=== PATIENT | female | born 1960 | race Caucasian/White ===

== ENCOUNTER → 2017-01-01 | Outpatient (CLI) | payer OTHER ==
--- NOTE | 2017-01-01 15:26 | DX ---
PA and lateral chest x-ray 1351 hours. History: Cough with shortness of breath for 8 weeks. Findings: Comparison to September 29, 2007. There is moderate consolidation/pneumonia involving the rig ht lung with denser consolidation right suprahilar region. The left lung is clear. Heart size and pul monary vasculature are normal. Osseous structures are intact. Impression: Moderate pneumonia right lung with denser consolidation right suprahilar region.
== END ==
LOC: BMCIMAGING 13:53
PROVIDERS: ATTEND Internal Medicine
DX: J18.9 Pneumonia, unspecified organism (principal); R05 Cough; R06.02 Shortness of breath

== ENCOUNTER → 2017-01-09 | Outpatient (CLI) | payer OTHER ==
--- NOTE | 2017-01-09 13:53 | CT ---
CT Scan of the Chest Without Contrast: 11:22 AM History: Right lung pneumonia Comparison: None. Technique: Noncontrast multidetector [address] imaging was performed from the superior thoracic inlet to the diaphragm. The radiologist manipulated images at the computer workstation. Dose reduc tion techniques were utilized. Findings: Diffuse right upper lobe pneumonia with the densest consolidation in the anterior segment d evoid of air bronchograms. There is an anterior convex average density at the anterolateral margin of the densest portion suggesting the possibility of an underlying mass. There is no cavitation. Less d ense pneumonia is present elsewhere in the right upper lobe. There is a small amount of infiltrate in the lateral segment of the right middle lobe. There is no pleural effusion. The right hilum is promi nent suggesting adenopathy, mildly extrinsically compressing the posterior wall of the right middle l obe bronchus. There is a small pericardial effusion, possibly normal. The right lower lobe and left l shannan are normally aerated. There is noncalcified mediastinal adenopathy, the largest nodes being righ t paratracheal and subcarinal. There is no axillary or internal mammary adenopathy. Skeletal evaluati on is negative. Limited scans through the upper abdomen demonstrate 2 subtle low density lesions in t he right lobe of the liver, one in the caudate lobe and one in the right lateral lower lobe. The adre nal glands are negative. There is shotty para-aortic noncalcified adenopathy. Impression: Possible mass underlying the patient's right upper lobe pneumonia. There is evidence sugg esting the possibility of regional and hepatic metastatic disease, although lymph nodes might be reac tive. Chest CT with IV contrast would be helpful to better define the right upper lobe process, right hilum and liver lesions. Consider bronchoscopy for obtaining histologic sampling.
== END ==
LOC: FIMAGING 10:55
PROVIDERS: ATTEND Internal Medicine
DX: R91.8 Other nonspecific abnormal finding of lung field (principal); J18.9 Pneumonia, unspecified organism

== ENCOUNTER 2017-01-29 07:45 | Emergency (ER) | payer OTHER ==
[2017-01-29 07:58] VITALS: RESP 18
[2017-01-29] MEDS ORDERED: CYCLOBENZAPRINE 10 MG TAB PO ONE (08:14)
[2017-01-29] MEDS ORDERED: KETOROLAC 30 MG/1 ML SDV IM ONE (08:14)
--- NOTE | 2017-01-29 08:21 | EDPHY ---
H & P Time Seen by Provider: 01/29/17 08:07 HPI/ROS: HPI Left-sided lower back pain. 56-year-old female by private vehicle. This patient reports that she has had on and off lumbar area lower back pain. She denies any loss of sensation or weakness in her lower extremities. No bowel or bladder incontinence. She has not had a fever. No abdominal pain. She reports that this morning she was leaning over bending forward from a sitting position to cut her nails when she had sudden spasm and pain in the left lumbar sacral area that radiated up into her mid back. She reports continued stiffness and pain to this area that goes across her back. ROS: Constitutional: No fever, no chills. No weakness. Eyes: No discharge. No changes in vision. ENT: No sore throat. No nasal congestion or rhinorrhea. Respiratory: No cough. No shortness of breath. Cardiac: No chest pain, no palpitations. Gastrointestinal: No abdominal pain, no vomiting, no diarrhea. Genitourinary: No hematuria. No dysuria or increased frequency with urination. Musculoskeletal: As above. No neck pain. No myalgias or arthralgias. Skin: No rashes. Neurological: No headache. No focal weakness or altered sensation. Past medical history: Hysterectomy, appendectomy, Achilles tendon rupture. She also has a history of what sounds like pulmonary fibrosis, she is currently working with a predatory game hunter here locally named Dr. Ladd. Her pulse oximetries on room air at baseline are in the upper 80s to low 90s. Social history: She is . Nonsmoker. Currently here by herself. Her will come and pick her up. Physical Exam: General Appearance: Alert, no distress. This patient is responding to questions appropriately and in full sentences. This patient appears well- hydrated and well-nourished. Eyes: Pupils equal and round no pallor or injection. No lid edema, erythema or injection. Lower back exam: She does have some vague tenderness on palpation over the left sacroiliac joint. No midline cervical, thoracic, lumbar, sacral tenderness on palpation. No soft tissue changes. No ecchymosis, no erythema, no warmth, no edema. She has a negative same side and cross-eyed straight leg raise test. She is neurologically intact in all myotomes in dermatomes of the bilateral lower extremities. Respiratory: There are no retractions, lungs are clear to auscultation but mildly diminished. No tachypnea.. Cardiovascular: Regular rate and rhythm. No murmur. Gastrointestinal: Abdomen is soft and nontender, no masses, bowel sounds normal. No focal tenderness at McBurney's point. No Orr sign. Neurological: Motor sensory function is grossly intact. Cranial nerves are normal. Gait is normal. Skin: Warm and dry, no rashes. Musculoskeletal: Neck is supple and nontender. Extremities are symmetrical. All joints range without pain or impingement. Psychiatric: No agitation. No depression. Database: EKG: Imaging: Procedures: Emergency department course: After my evaluation, I discussed medication allergies. She does not want narcotic pain medications. She has no contraindications to NSAIDs. I saw a normal creatinine from March of 2016. Plan will be to give her 60 mg of intramuscular Toradol in the emergency department with 10 mg of oral Flexeril. 9:00 a.m., the patient is feeling better at this time. Repeat neurologic Assessment is nonfocal. She is ambulating without difficulty. She does feel comfortable going home and I feel she is safe for discharge. I discussed strict return to emergency department precautions with her. Follow-up was reviewed. All of her questions were answered. She was discharged in good condition. Differential Diagnosis: The differential diagnosis on this patient includes but is not limited to sacroiliac strain on the left. Epidural compression syndrome, acute radiculopathy, traumatic spinal injury, metastatic pathological flexed fracture , AAA unlikely. This represents a partial list of diagnoses considered. These considerations are based on history, physical exam, past history, reassessment and diagnostic testing. Smoking Status: Never smoked Constitutional: Initial Vital Signs Temperature (C) 36.5 C 01/29/17 07:56 Heart Rate 89 01/29/17 07:56 Respiratory Rate 18 01/29/17 07:56 Blood Pressure 134/97 H 01/29/17 07:56 O2 Sat (%) 89 L 01/29/17 07:56 O2 Delivery Mode Room Air Allergies/Adverse Reactions: povidone-iodine [From Betadine] Allergy (Verified 01/29/17 07:54) soap [From Betadine] Allergy (Verified 01/29/17 07:54) Home Medications: Medication Instructions Recorded Cyclobenzaprine [Flexeril 10 MG 10 mg PO TID #9 tab 01/29/17 (*)] Medical Decision Making - Data Points Medications Given: Discontinued Medications Cyclobenzaprine HCl (Flexeril) 10 mg PO EDNOW ONE Stop: 01/29/17 08:15 Last Admin: 01/29/17 08:39 Dose: 10 mg Ketorolac Tromethamine (Toradol) 60 mg IM EDNOW ONE Stop: 01/29/17 08:15 Last Admin: 01/29/17 08:39 Dose: 60 mg Departure - Departure Disposition: Home, Routine, Self-Care Clinical Impression: Injury of lower back, Left sacroiliac strain Condition: Good Instructions: Low Back Strain (ED), Acute Low Back Pain (ED) Additional Instructions: Read and follow provided instructions. Follow-up with your primary care physician in 1-2 days for re-evaluation as discussed. Take medication as prescribed. Do not take ibuprofen as recommended below until tonight before bed. Ibuprofen dosin mg every 6 hours with meals for the next 2 days only. Return to the emergency department for worsening pain, loss of control of your bowel or bladder, weakness or loss of sensation in your lower extremities, fever or other serious concerns. Referrals: Alexia Reddy MD [Primary Care Provider] - As per Instructions Prescriptions: Cyclobenzaprine [Flexeril 10 MG (*)] 10 mg PO TID #9 tab
[2017-01-29 10:08] VITALS: BP 133/86; PULSE 85; TEMP 97.5; O2SAT 91
== END 2017-01-29 09:16 | disposition home or self-care (01) ==
DX: S33.6XXA Sprain of sacroiliac joint, initial encounter (principal); X58.XXXA Exposure to other specified factors, initial encounter
CPT/HCPCS: J1885

== ENCOUNTER 2017-02-05 17:59 | Inpatient (IN) | payer OTHER ==
--- NOTE | 2017-02-05 18:10 | EDPHY ---
H & P Time Seen by Provider: 02/05/17 18:10 HPI/ROS: CHIEF COMPLAINT: Short of breath HISTORY OF PRESENT ILLNESS: This 56-year-old woman was diagnosed on CT with a right upper lung pneumonia on 01/09/2017. She was treated with azithromycin but feels she did not ever really get better. She was seen in the emergency department on January 29 for back pain. She continues to have a morning cough with some clear sputum but this morning she coughed up some blood. Today she felt much more short of breath and just prior to coming here noted she could not even get from her car to the door of the grocery store so 1 home called her doctor. She went to urgent care was noted to have an oxygen saturation in the low 70s and was sent to the emergency department. Here her initial emergency department saturation was also in the 70s. REVIEW OF SYSTEMS: Eye: no change in vision ENT: no sore throat Cardiac: no chest pain or syncope Pulmonary: HPI Abdomen: no vomiting, diarrhea, abdominal pain Musculoskeletal: Back pain since 01/29 Skin: Rash which started in the early January now is still itchy and is on both sides of her torso but more on the left side of her chest. It is slightly red and raised. Neuro: no headache Constitutional: no fever : no urinary symptoms A comprehensive 10 point review of systems is otherwise negative aside from elements mentioned in the history of present illness. PAST MEDICAL HISTORY: Hysterectomy, appendectomy, Achilles tendon rupture. Social history: Nonsmoker At 6:03 p.m. blood pressure 128/93, heart rate 123, O2 sats 79% on room air, temperature 36.7degrees. General Appearance: Alert and conversant, cooperative. Eyes: No scleral icterus. ENT, Mouth: Normal mucous membranes. No angioedema. Respiratory: Decreased breath sounds on the right side. No wheezing or rales. Cardiovascular: Regular rate and rhythm. Tachycardic. Gastrointestinal: Abdomen is soft and non tender. Neurological: Alert and oriented x3. Normally conversant. Face symmetric, normal movement and sensation in all extremities. Skin: Slight erythema lateral to the right breast and on the left torso mostly in the anterior and mid axillary line. No bruising or petechiae or purpura. Musculoskeletal: No peripheral edema and no joint swelling. No calf tenderness. Psychiatric: Not agitated. Lymph: Some fullness in the left supraclavicular region possible lymphadenopathy there. Emergency Department course/MDM: Supplemental oxygen immediately applied nasal cannula to increase the patient's oxygen saturations. Plan for i-STAT followed by CT angiography. Chemistries and EKG. 1912: Results discussed with the patient. Plan for anticoagulation, admission to the hospitalist service, pulmonology consult for bronchoscopy tomorrow. Specifically Dr. Barnhart thinks she does not have pneumonia. Discussed with Dr. Nadir López admitting hospitalist, admission to PCU with unfractionated heparin bolus and drip. Smoking Status: Never smoked Constitutional: Initial Vital Signs O2 Sat (%) 86 L 02/05/17 18:00 O2 Delivery Mode Nasal Cannula O2 (L/minute) 5 Allergies/Adverse Reactions: povidone-iodine [From Betadine] Allergy (Intermediate, Verified 02/05/17 18:07) Rash soap [From Betadine] Allergy (Verified 01/29/17 07:54) Home Medications: Medication Instructions Recorded Cyclobenzaprine [Flexeril 10 MG 5 mg PO HS 02/05/17 (*)] Ibuprofen [Advil] 600 mg PO HS 02/05/17 Medical Decision Making - Diagnostics EKG Interpretation: 12-lead EKG interpreted by me; official reading is in trace master. My interpretation is sinus tachycardia with left posterior fascicular block and nonspecific lateral T-wave inversions. Imaging: CT reviewed with Dr. Barnhart shows low volume left lower lung pulmonary emboli and possible right upper lung tumor, 1907. Differential Diagnosis: Differential diagnosis considered for shortness of breath including but not limited to pulmonary infectious process, COPD, asthma, pulmonary embolus and congestive heart failure. Consult/Admit Bed Type: Eladia López 1920 Critical Care Time: Critical care time spent by me, Dr. Garcia, exclusively with the care of this patient was 35 minutes, exclusive of PA or ROUTE SALES REPRESENTATIVE time and exclusive of separate procedures. The organ system at risk was pulmonary and I ordered supplemental oxygen, diagnostics including CT scanning with IV contrast, emergency department anticoagulation, discussion with admitting hospitalist physician to stabilize the patient and prevent worsening of the patient's condition. - Data Points Laboratory Results: Laboratory Results 02/05/17 18:24 02/05/17 18:24 02/05/17 02/05/17 02/05/17 18:26 18:24 18:24 WBC 13.40 10^3/uL H 10^3/uL (3.80-9.50) RBC 5.85 10^6/uL H 10^6/uL (4.18-5.33) Hgb 16.5 g/dL H g/dL (12.6-16.3) POC Hgb 17.7 gm/dL H gm/dL (12.3-15.9) Hct 48.9 % H % (38.0-47.0) POC Hct 52 % H % (35.5-47.5) MCV 83.6 fL fL (81.5-99.8) MCH 28.2 pg pg (27.9-34.1) MCHC 33.7 g/dL g/dL (32.4-36.7) RDW 14.7 % % (11.5-15.2) Plt Count 190 10^3/uL 10^3/uL (150-400) MPV 10.5 fL fL (8.7-11.7) Neut % (Auto) 79.9 % H % (39.3-74.2) Lymph % (Auto) 9.2 % L % (15.0-45.0) [place] % (Auto) 7.2 % % (4.5-13.0) Eos % (Auto) 1.9 % % (0.6-7.6) Baso % (Auto) 1.3 % % (0.3-1.7) Nucleat RBC Rel Count 0.0 % % (0.0-0.2) Absolute Neuts (auto) 10.71 10^3/uL H 10^3/uL (1.70-6.50) Absolute Lymphs (auto) 1.23 10^3/uL 10^3/uL (1.00-3.00) Absolute Monos (auto) 0.96 10^3/uL H 10^3/uL (0.30-0.80) Absolute Eos (auto) 0.26 10^3/uL 10^3/uL (0.03-0.40) Absolute Basos (auto) 0.17 10^3/uL H 10^3/uL (0.02-0.10) Absolute Nucleated RBC 0.00 10^3/uL 10^3/uL (0-0.01) Immature Gran % 0.5 % % (0.0-1.1) Immature Gran # 0.07 10^3/uL 10^3/uL (0.00-0.10) POC Sodium 139 mEq/L mEq/L (134-144) Sodium 138 mEq/L mEq/L (134-144) POC Potassium 3.9 mEq/L mEq/L (3.3-5.0) Potassium 4.1 mEq/L mEq/L (3.5-5.2) POC Chloride 104 mEq/L mEq/L (96-108) Chloride 105 mEq/L mEq/L (97-110) Carbon Dioxide 21 mEq/l L mEq/l (22-31) Anion Gap 12 mEq/L mEq/L (8-16) POC BUN 14 mg/dL mg/dL (7-23) BUN 15 mg/dL mg/dL (7-23) Creatinine 0.7 mg/dL mg/dL (0.6-1.0) POC Creatinine 0.6 mg/dL mg/dL (0.6-1.2) Estimated GFR > 60 Glucose 104 mg/dL H mg/dL (70-100) POC Glucose 108 mg/dL H mg/dL (70-100) Calcium 9.6 mg/dL mg/dL (8.5-10.4) Troponin I 0.109 ng/mL H ng/mL (0-0.034) Medications Given: Discontinued Medications Heparin Sodium (Porcine) (Heparin Injection) 0 unit IVP EDNOW ONE PRN Reason: Protocol Stop: 02/05/17 19:24 Last Admin: 02/05/17 20:32 Dose: 4,600 unit Heparin Sodium (Porcine) (Heparin Injection) 0 unit IVP ONCE ONE PRN Reason: Protocol Stop: 02/05/17 20:18 Last Admin: 02/05/17 20:32 Dose: 4,600 unit Point of Care Test Results: 02/05/17 18:26 POC Sodium 139 POC Potassium 3.9 POC Chloride 104 POC BUN 14 POC Creatinine 0.6 POC Glucose 108 H Departure - Departure Disposition: [facility] Inpatient Acute Clinical Impression: Mass of upper lobe of right lung Pulmonary embolism Qualifiers: Pulmonary embolism type: other Chronicity: acute Acute cor pulmonale presence: without acute cor pulmonale Qualified Code(s): I26.99 - Other pulmonary embolism without acute cor pulmonale Condition: Serious
[2017-02-05] MEDS ORDERED: IOPAMIDOL (ISOVUE-300) 100 ML BTL IV ONE (18:38)
--- NOTE | 2017-02-05 18:39 | CPEKG ---
Heart Rate: 121 RR Interval: 496 P-R Interval: 180 QRSD Interval: 74 QT Interval: 324 QTC Interval: 460 P [place]: 51 QRS [place]: 115 T Wave [place]: -53 EKG Severity - ABNORMAL ECG - EKG Impression: SINUS TACHYCARDIA EKG Impression: LEFT POSTERIOR FASCICULAR BLOCK EKG Impression: ABNORMAL T, CONSIDER ISCHEMIA, DIFFUSE LEADS Electronically Signed By: Bill Garcia 05-Feb-2017 18:39:45
[2017-02-05 18:43] LABS: % IMMATURE GRANULYOCYTES 0.5 % (0.0-1.1); ABSOLUTE IMMATURE GRANULOCYTES 0.07 10^3/uL (0.00-0.10); ADD DIFF? NO; ADD MORPH? NO; ADD SCAN? NO; ATYPICAL LYMPHOCYTE FLAG 0 (0-99); FRAGMENT RBC FLAG 0 (0-99); HEMATOCRIT 48.9 % (38.0-47.0); HEMOGLOBIN 16.5 g/dL (12.6-16.3); LEFT SHIFT FLG 0 (0-99); LIPEMIA HEMOLYSIS FLAG 80 (0-99); MEAN CELL HEMOGLOBIN 28.2 pg (27.9-34.1); MEAN CELL HEMOGLOBIN CONCENTR. 33.7 g/dL (32.4-36.7); MEAN CELL VOLUME 83.6 fL (81.5-99.8); MEAN PLATELET VOLUME 10.5 fL (8.7-11.7); PLATELET CLUMPS FLAG 0 (0-99); PLATELET COUNT 190 10^3/uL (150-400); RED BLOOD CELL COUNT 5.85 10^6/uL (4.18-5.33); RED CELL DISTRIBUTION WIDTH 14.7 % (11.5-15.2)
[2017-02-05 18:55] LABS: ANION GAP 12 mEq/L (8-16); CALCIUM 9.6 mg/dL (8.5-10.4); CARBON DIOXIDE 21 mEq/l (22-31); CHLORIDE 105 mEq/L (97-110); CREATININE 0.7 mg/dL (0.6-1.0); GLOMERULAR FILTRATION RATE > 60; GLUCOSE 104 mg/dL (70-100); POTASSIUM 4.1 mEq/L (3.5-5.2); SODIUM 138 mEq/L (134-144)
[2017-02-05 19:06] LABS: TROPONIN I 0.109 ng/mL (0-0.034)
[2017-02-05] MEDS ORDERED: HEPARIN/DEXTROSE 500 ML IV ONE (19:23)
[2017-02-05] MEDS ORDERED: HEPARIN 10,000 UNIT/10 ML MDV IVP ONE (19:23)
[2017-02-05] MEDS ORDERED: ONDANSETRON 4 MG/2 ML VIAL IVP PRN (20:14)
[2017-02-05] MEDS ORDERED: ONDANSETRON DISINTEGRATING 4 MG TAB PO PRN (20:14)
[2017-02-05] MEDS ORDERED: oxyCODONE IR 5 MG TAB PO PRN (20:14)
[2017-02-05] MEDS ORDERED: NS 1,000 ML IV SCH (20:15)
[2017-02-05] MEDS ORDERED: HEPARIN 10,000 UNIT/10 ML MDV IVP PRN (20:17)
[2017-02-05] MEDS: HEPARIN 10,000 UNIT/10 ML MDV IVP ONE (20:32)
[2017-02-05] MEDS: HEPARIN/DEXTROSE 500 ML IV SCH (20:36)
--- NOTE | 2017-02-05 20:56 | GHP ---
[f rep st] HISTORY AND PHYSICAL DATE OF ADMISSION: 02/05/2017 HISTORY OF PRESENT ILLNESS: The patient is a pleasant 56-year-old female, who presents with hemoptysis. She was treated for pneumonia around early January and she had a CT scan that showed possible mass underlying the patient's right upper lobe pneumonia. She has followed up with Pulmonary who recommended a repeat CT after about 1 month. She presents today with ongoing cough and an episode of hemoptysis today. She has been short of breath and she was found to be tachycardic on presentation. She has no prior medical history. She has had no drenching night sweats or weight loss but did notice today after going shopping, which is usually not a level of exertion at all for her, she felt very short of breath and drenched in sweat. She has been a lifelong nonsmoker. There is no family history of malignancy. She has worked in occupations which do not seem to predispose her to risk of pulmonary malignancy. REVIEW OF SYSTEMS: Complete 10-point review of systems conducted negative except as noted in the HPI. PAST MEDICAL HISTORY: Recent pneumonia. ALLERGIES: Povidone, iodine and soap. HOME MEDICATIONS: None. FAMILY HISTORY: No lung cancer or lymphoma. SOCIAL HISTORY: She works at [employer] She is with adult children. Originally from [place]. PHYSICAL EXAMINATION: PRESENTING VITALS: Temp 36.7, blood pressure 128/93, pulse 123, breathing 20 times a minute, 79% on room air, 91% on 5 L. GENERAL: No acute distress. Anxious. HEENT: Sclerae anicteric. Oropharynx clear. Mucous membranes are moist. NECK: Supple without lymphadenopathy or JVD. LUNGS: Clear to auscultation bilaterally. There are markedly enlarged lymph nodes in the left supraclavicular fossa. HEART: Tachycardic. S1, S2. ABDOMEN: Soft, nontender, nondistended. LOWER EXTREMITIES: Without edema. Calves nontender. SKIN: Without rash. NEUROLOGIC: Grossly nonfocal. LABORATORY DATA: White count 13, hematocrit 48.9, platelets are 190,000. Sodium 138, potassium 4.1, chloride 105, bicarb 21, BUN 15, creatinine 0.7, glucose 104. Troponin 0.109. EKG, interpreted by me shows sinus tach at 121 with normal axis and intervals. There is a large S-wave in lead V1 and T-wave inversion in lead 3. Otherwise no ST or T-wave changes. No prior for comparison. There are deep T-wave inversions across the precordium without ST-elevation, seen best in V3, V4. CTA of the chest shows small volume subsegmental pulmonary emboli in the left lower lobe, right suprahilar mass with postobstructive consolidation, possible lymphangitic carcinomatosis. Right hilar, right paratracheal, subcarinal, and supraclavicular lymphadenopathy. She also has left supraclavicular lymphadenopathy on exam. I reviewed and interpreted the images myself, as well as reviewed the radiology report. I discussed the case with Dr. Bill Garcia, as well as Dr. Kyaw Arriola who will see her in consultation for bronchoscopy. ASSESSMENT/PLAN: This is a 56-year-old female, who presents with hemoptysis, dyspnea, tachycardia, positive troponin, pulmonary embolism and large pulmonary mass. 1. Pulmonary mass is almost certainly cancer. At this point in time, she will receive bronchoscopy tomorrow for further evaluation. I have discussed these findings with the patient including the likely differential. She does understand that. Certainly if bronchoscopic biopsy is unsuccessful, then her left clavicular nodes could also be biopsied. 2. Pulmonary embolism. Start heparin drip because her risk of bleeding with her large mass, as well as the need for bronchoscopy with biopsy tomorrow. 3. Postobstructive pneumonia. Treat with ertapenem. 4. EKG changes with positive troponin. I expect this is all strain from pulmonary embolism, although she may have some underlying coronary disease. I will check an echocardiogram in the morning and a cycle of troponins. I am going to hold on aspirin at this time. 5. Prophylaxis. She is being therapeutically anticoagulated. DISPOSITION: Inpatient status. /[id number]/MODL MTDD
[2017-02-05 22:24] LABS: APTT 24.2 SEC (23.0-38.0); INR 1.09 (0.83-1.16)
[2017-02-05] MEDS: ACETAMINOPHEN 325 MG TAB PO PRN (22:58)
[2017-02-05] MEDS: ERTAPENEM 1 GM in NS 100 ML IV SCH (23:00)
[2017-02-06] MEDS: HEPARIN 10,000 UNIT/10 ML MDV IVP ONE (01:39)
[2017-02-06 02:45] LABS: % IMMATURE GRANULYOCYTES 0.5 % (0.0-1.1); ABSOLUTE IMMATURE GRANULOCYTES 0.06 10^3/uL (0.00-0.10); ADD DIFF? NO; ADD MORPH? NO; ADD SCAN? NO; ATYPICAL LYMPHOCYTE FLAG 0 (0-99); FRAGMENT RBC FLAG 0 (0-99); LEFT SHIFT FLG 0 (0-99); LIPEMIA HEMOLYSIS FLAG 80 (0-99); MEAN CELL HEMOGLOBIN 28.1 pg (27.9-34.1); MEAN CELL HEMOGLOBIN CONCENTR. 33.3 g/dL (32.4-36.7); MEAN CELL VOLUME 84.2 fL (81.5-99.8); MEAN PLATELET VOLUME 11.4 fL (8.7-11.7); PLATELET CLUMPS FLAG 0 (0-99); PLATELET COUNT 149 10^3/uL (150-400); RED BLOOD CELL COUNT 4.99 10^6/uL (4.18-5.33); RED CELL DISTRIBUTION WIDTH 14.9 % (11.5-15.2)
[2017-02-06 02:54] LABS: INR 1.23 (0.83-1.16); PROTIME(PATIENT) 15.5 SEC (12.0-15.0)
[2017-02-06] MEDS: ACETAMINOPHEN 325 MG TAB PO PRN (04:05)
--- NOTE | 2017-02-06 09:07 | ECHO ---
[id number] + + [address] : : [place] [address] : : [phone] + Adult Echocardiographic Report + -+ :Name: MAY Arun Date: 02/06/2017 08:01 AM BP: 118/82 mmHg : : Hospital Admission Number: [id number] Location: 20 3: :: 1960 Gender: Female Height: 62 in : :Age: 56 yrs Race: WH Weight: 277 lb : :Reason For Study: eval for rt heart strain : : BSA: 2.2 meters2 : :History: Pulmonary embolism and + trop : + -+ MMode/2D Measurements \T\ Calculations IVSd: 1.2 cm RVDd: 4.0 cm FS: 39.8 % Ao root diam: 2.6 cm LVPWd: 0.91 cm LVIDd: 4.2 cm EDV(Teich): 79.4 ml LA dimension: 3.3 cm LVIDs: 2.5 cm ESV(Teich): 23.2 ml EF(Teich): 70.8 % Normal Measurement Values: + + :LVIDd (3.5-5.7cm) IVSd (0.6-1.1cm) LVPWd (0.6-1.1cm) Aortic Root (2.0-3.7cm)Left Atrium (1.5-4.0cm): :LV Vol(d) (76-115ml) LV Vol(s) (29-48ml) Ejec Fraction (50-65%)PV Omar (0.6- 1.2m/s) TV Omar (0.4-1.0m/s) : :MV E Omar (0.8-1.0m/s)MV A Omar (0.3-1.0m/s)LVOT Omar (0.7-1.2m/s) Asc Ao Oamr ( 0.9-1.8m/s) : + + Doppler Measurements \T\ Calculations MV E max omar: Ao V2 max: LV V1 max: PA V2 max: 44.9 cm/sec 104.2 cm/sec 88.8 cm/sec 79.3 cm/sec MV A max omar: Ao max P.3 mmHgLV V1 max PG: PA max P.5 cm/sec 3.2 mmHg 2.5 mmHg MV E/A: 0.61 TR max omar: 354.2 cm/sec TR max P.2 mmHg RAP systole: 10.0 mmHg RVSP(TR): 60.2 mmHg Left Ventricle The left ventricle is normal in size and function. There is mild concentric left ventricular hypertrophy. Ejection Fraction = 65-70%. Flattened septum is consistent with RV pressure/volume overload. Right Ventricle The right ventricle is mild to moderately dilated. The right ventricular systolic function is moderately reduced. Atria The left atrial size is normal. Right atrial size is normal. Mitral Valve The mitral valve is normal in structure and function. There is no mitral valve stenosis. There is no mitral regurgitation noted. Tricuspid Valve The tricuspid valve is normal in structure and function. There is no tricuspid stenosis. There is moderate tricuspid regurgitation. Right ventricular systolic pressure is 60mmHg. There is Doppler evidence for moderate to severe pulmonary hypertension. Aortic Valve The aortic valve is normal in structure and function. The aortic valve is trileaflet. There is no aortic stenosis. There is no aortic insufficiency. Pulmonic Valve The pulmonic valve is normal in structure and function. Trace pulmonic valvular regurgitation. Great Vessels The aortic root is normal size. Pericardium/Pleural Small to Moderate pericardial effusion. There are no echocardiographic indications of cardiac tamponade. There is no pleural effusion. Conclusion A two-dimensional transthoracic echocardiogram with M-mode and Doppler was performed. The left ventricle is normal in size and function. There is mild concentric left ventricular hypertrophy. Ejection Fraction = 65-70%. Flattened septum is consistent with RV pressure/volume overload. There is moderate tricuspid regurgitation. Right ventricular systolic pressure is 60mmHg. There is Doppler evidence for moderate to severe pulmonary hypertension. The aortic valve is normal in structure and function. Trace pulmonic valvular regurgitation. Small to Moderate pericardial effusion. The right ventricular systolic function is moderately reduced. The right ventricle is mild to moderately dilated. There is no pleural effusion. Final Reading Physician: Macho Luis electronically signed on 02/06/2017 09:06 AM Ordering Physician: Nadir López Performed By: Julienne Gilbert
[2017-02-06] MEDS: ERTAPENEM 1 GM in NS 100 ML IV SCH (10:04)
--- NOTE | 2017-02-06 10:09 | HOSPPROG ---
Hospitalist Progress Note Assessment/Plan: 51 yo female admitted with acute LLL subsegmental P.E., Hypoxemia, and Right Suprahilar mass. #LLL subsegmental P.E. with evidence of right sided strain -TTE c/w preserved LVEF, RVSP 60mmHg -Heparin drip. Will continue today. Change to other AC once no further procedures planned #Right Suprahilar Mass likely cancer -will have Bronchoscopy today -The patient is aware of the differential diagnosis #Postobstructive Pneumonia -Ertapenem (start date 02/05) #Chest Pain with EKG changes concerning for ischemia and indeterminate troponin -feels better today. -suspect etiology is due to strain from P.E. -Trop still indeterminate but trending down. -Held Aspirin on admission due to starting AC and mass #Full code S: Feels better. CP has resolved. Still with difficulty taking a deep breath, but overall improved Will get bronchoscopy today Objective: Vital Signs Temp Pulse Resp BP Pulse Ox 36.6 C 106 H 22 H 118/82 H 92 02/06/17 07:27 02/06/17 07:27 02/06/17 07:27 02/06/17 07:27 02/06/17 07:27 Laboratory Results 02/06/17 02:30 02/05/17 02/06/17 02/07/17 05:59 05:59 05:59 Intake Total 445 Output Total 300 Balance 145 PT 15.5 SEC (12.0-15.0) H 02/06/17 02:30 INR 1.23 (0.83-1.16) H 02/06/17 02:30 - Physical Exam Constitutional: no apparent distress, appears nourished, not in pain Eyes: PERRL, anicteric sclera, EOMI Ears, Nose, Mouth, Throat: moist mucous membranes, hearing normal, ears appear normal, no oral mucosal ulcers Cardiovascular: regular rate and rhythym, no murmur, rub, or gallop Respiratory: no respiratory distress, reduced air movement, No no rales or rhonchi Gastrointestinal: normoactive bowel sounds, soft, non-tender abdomen, no palpable masses Genitourinary: no bladder fullness Skin: warm, normal color Musculoskeletal: No generalized weakness Neurologic: AAOx3, No weakness Psychiatric: interacting appropriately, not anxious, not encephalopathic, thought process linear ICD10 Worksheet Patient Problems: Problems Problem Status Onset Mass of upper lobe of right lung Acute Pulmonary embolism Acute Appendicitis Acute
[2017-02-06] MEDS ORDERED: ALBUTEROL 3 ML DEYVIAL ONE (13:36)
[2017-02-06] MEDS ORDERED: MIDAZOLAM 2 MG/2 ML VIAL ONE (13:56)
[2017-02-06] MEDS ORDERED: EPINEPHrine 1 MG/10 ML SYR IVP ONE (13:57)
[2017-02-06] MEDS ORDERED: fentaNYL 100 MCG/2 ML INJ ONE (13:57)
--- NOTE | 2017-02-06 16:33 | GPN ---
[f rep st] PROCEDURE NOTE DATE OF PROCEDURE: 02/06/2017 REASON FOR BRONCHOSCOPY: Right upper lobe mass. PROCEDURE NOTE: The procedure was performed in the endoscopy unit in a negative pressure room. N95 masks were worn. Appropriate time-out was performed. Topical anesthesia was accomplished with approximately 30 mL of 1% lidocaine given over the time course of the procedure. Intravenous sedation consisted of 4 mg of Versed and 100 mcg of fentanyl. Informed consent was obtained from the patient. The fiberoptic bronchoscope was passed via bite block orally in the larynx. Laryngeal structures were normal. The vocal cords moved normally with respiration and cough. The bronchoscope was advanced into the trachea and in the lower tracheobronchial tree bilaterally. There was a small amount of blood in the airways, but no active bleeding was seen. Anatomy was normal bilaterally with the exception of the right upper lobe. All areas except the right upper lobe were seen to at least the segmental level. There were no significant secretions. The right upper lobe was narrowed just beyond its takeoff, and segmental bronchi could not be seen. The mucosa appeared edematous but not frankly malignant. There were no obvious malignant lesions in this area. A bronchial washing sample was obtained from the right upper lobe. With this, there was bleeding. A few cc of topical 1:10,000 epinephrine were applied. A cytology brush sample was then obtained. There was further bleeding, and further epinephrine was needed. After bleeding resolved and airways were suctioned, a biopsy was obtained. This was likely an endobronchial biopsy with the biopsy forceps advanced into the right upper lobe. A transbronchial biopsy could not be excluded. This was taken under fluoroscopic guidance. There was further bleeding with this, and no further biopsies were attempted. The airways were suctioned and the patient observed until bleeding ceased. Total blood loss is difficult to estimate, possibly 20 mL or greater. Appropriate samples were sent to the lab including cultures from the bronch wash as well as cytologies. The brush samples were sent for cytologies. The single biopsy was sent for pathology. The patient tolerated the procedure reasonably well. The patient was hypoxemic into the 80s and high 70s briefly. Saturations came back up with additional supplemental oxygen. Bleeding stopped prior to removal of the bronchoscope. There was no evidence of a pneumothorax by fluoroscopy. ASSESSMENT: 1. Compression of the right upper lobe without definite endobronchial malignancy at its orifice in the area that could be seen. Washings, brushings, and a biopsy was obtained. 2. Right upper lobe mass, query etiology: Suspect malignancy. /[id number]/MODL MTDD
--- NOTE | 2017-02-06 16:43 | GCON ---
[f rep st] CONSULTATION PULMONARY CONSULTATION. REASON FOR CONSULTATION: Right upper lobe lung mass. HISTORY OF PRESENT ILLNESS: The patient is a very pleasant 56-year-old who was admitted to the [facility] with a cough and hemoptysis. She was found to have a right upper lobe mass on CT scan, angeline sing or obstructing the right upper lobe bronchus. She has been ill over the past couple of months with ongoing cough and purulent sputum. She has been on antibiotics without significant benefit. P revious CT scan done at the time of her original diagnosis of pneumonia also suggested a mass. The followup scan is more definite. This was done on admission using CTA techniques. Also, a small sub segmental pulmonary emboli in the left lower lobe was felt to be present, of questionable significan ce. There appeared to be postobstructive consolidation as well as hilar and mediastinal adenopathy. She was found to have supraclavicular adenopathy as well on the left. She is a never smoker. She has no risk factors for malignancy. PAST MEDICAL HISTORY: Unremarkable for chronic medical problems. MEDICATIONS: She was taking only ibuprofen and Flexeril on admission. SOCIAL HISTORY: The patient is and has grown children. She works at [employer] in the [employer] department. Significant alcohol is negative. FAMILY HISTORY: Negative for malignancy. REVIEW OF SYSTEMS: No history of lung disease, heart disease, previous thromboembolism, etc. She h as had some lower extremity pain on the right below the hip posteriorly that she attributed to lifti ng a heavy box at work. She denies calf pain or swelling of the lower extremities. DRUG ALLERGIES: Iodine-containing soaps. PHYSICAL EXAMINATION: GENERAL: Reveals a pleasant woman in no acute distress. Oxygen is in place by simple mask. VITAL SIGNS: Saturations are in the low 90s. Blood pressure is 110/80. , Heart ra te 110 and regular. Respiratory rate is approximately 20. HEENT: Remarkable for left supraclavicu lar adenopathy. There is no tenderness. There are no nodes related to the neck and no jugular veno us distention. CHEST: Coarse breath sounds, diminished at the right apex with rales present. Air exchange in this area is coarse. No rhonchi are appreciated. HEART: Tachycardic. There is a soft systolic murmur. No gallops. ABDOMEN: Soft, nontender. Somewhat overweight. There is no obviou s organomegaly. EXTREMITIES: The right lower extremity is 1/2 to 3/4 of an inch greater than the l eft at the largest dimension of the calf. There are no obvious cords. No definite tenderness. IMAGING: CT scan of the chest is as described above with a right upper lobe mass, bronchial narrowi ng and obstruction, possible postobstructive pneumonia, and hilar and mediastinal adenopathy. This is suggestive of malignancy. LABORATORY: White blood cell count is 12,000, hematocrit 42, platelets are 149,000. PT and PTT on admission were normal. Basic metabolic panel is normal. ASSESSMENT: 1. Right upper lobe mass in a nonsmoker. This is suggestive of malignancy. She was recently on an tibiotics for possible pneumonia and was and is at risk for ongoing postobstructive infection. She is being treated with ertapenem. 2. Small subsegmental pulmonary embolism of questionable clinical significance. She is on heparin. This will need to be stopped prior to bronchoscopy. PLAN: Bronchoscopy with biopsies will be performed. Heparin will be stopped at least 3 hours prior to the procedure and restarted afterwards when appropriate. Antibiotics will be continued. Bronch odilator therapy will be added to her regimen. Further plans and recommendations will be made based after the bronchoscopy and its findings. Copy requested to: Alexia Reddy MD /[id number]/MODL
[2017-02-06] MEDS: LEVALBUTEROL 1.25 MG/3 ML DEYVIAL IH SCH ×2 (17:13→23:38)
--- NOTE | 2017-02-06 21:57 | HOSPPROG ---
Hospitalist Progress Note Assessment/Plan: Called to see patient for increased oxygen requirement. She has a recent diagnosis of small pulmonary embolism and possible right upper lobe mass and had bronchoscopy earlier today with biopsy. She is having significant coughing with sputum production. It is blood tinged. She is mildly tachypneic but not in overt distress. She is requiring 10-12 L of oxygen lungs are fairly clear bilaterally chest x-ray personally viewed interpreted shows right upper lobe mass versus dense pneumonia and right lower lobe infiltrates which are similar to x-ray in January plan: continue to monitor closely. I do not think she needs BiPAP currently. Will closely monitor overnight. 35 minutes critical care time spent with patient and reviewing chart and x- rays Objective: Vital Signs Temp Pulse Resp BP Pulse Ox 36.6 C 120 H 34 H 117/87 H 83 L 02/06/17 20:00 02/06/17 20:00 02/06/17 20:54 02/06/17 20:00 02/06/17 20:54 Microbiology 02/06/17 15:10 Gram Stain - Final Lung Right Upper Lobe - Bronchial Washings Laboratory Results 02/06/17 02:30 02/05/17 02/06/17 02/07/17 05:59 05:59 05:59 Intake Total 445 1330 Output Total 300 600 Balance 145 730 PT 15.5 SEC (12.0-15.0) H 02/06/17 02:30 INR 1.23 (0.83-1.16) H 02/06/17 02:30 ICD10 Worksheet Patient Problems: Problems Problem Status Onset Mass of upper lobe of right lung Acute Pulmonary embolism Acute Appendicitis Acute
[2017-02-07] MEDS: HEPARIN/DEXTROSE 500 ML IV SCH (00:15)
[2017-02-07] MEDS: ACETAMINOPHEN 325 MG TAB PO PRN (00:21)
[2017-02-07] MEDS: LEVALBUTEROL 1.25 MG/3 ML DEYVIAL IH SCH ×4 (06:02→22:09)
[2017-02-07 06:40] LABS: % IMMATURE GRANULYOCYTES 0.5 % (0.0-1.1); ABSOLUTE IMMATURE GRANULOCYTES 0.06 10^3/uL (0.00-0.10); ADD DIFF? NO; ADD MORPH? NO; ADD SCAN? NO; ATYPICAL LYMPHOCYTE FLAG 0 (0-99); FRAGMENT RBC FLAG 0 (0-99); HEMOGLOBIN 13.5 g/dL (12.6-16.3); LEFT SHIFT FLG 0 (0-99); LIPEMIA HEMOLYSIS FLAG 80 (0-99); MEAN CELL HEMOGLOBIN 28.2 pg (27.9-34.1); MEAN CELL HEMOGLOBIN CONCENTR. 32.9 g/dL (32.4-36.7); MEAN CELL VOLUME 85.6 fL (81.5-99.8); PLATELET CLUMPS FLAG 10 (0-99); PLATELET COUNT 136 10^3/uL (150-400); RED BLOOD CELL COUNT 4.79 10^6/uL (4.18-5.33); RED CELL DISTRIBUTION WIDTH 15.1 % (11.5-15.2)
[2017-02-07 07:09] LABS: ANION GAP 8 mEq/L (8-16); CALCIUM 8.4 mg/dL (8.5-10.4); CARBON DIOXIDE 20 mEq/l (22-31); CHLORIDE 109 mEq/L (97-110); CREATININE 0.5 mg/dL (0.6-1.0); GLOMERULAR FILTRATION RATE > 60; GLUCOSE 105 mg/dL (70-100); POTASSIUM 3.8 mEq/L (3.5-5.2); SODIUM 137 mEq/L (134-144)
--- NOTE | 2017-02-07 08:50 | HOSPPROG ---
Hospitalist Progress Note Assessment/Plan: # acute hypoxic resp failure, multifactorial: d/t inflammation from bronch, mass , PE, pna - stable, may need transfer to ICU if worsens # LLL subsegmental PE with evidence of R heart strain - cont heparin gtt today - check LE US given tenuous status - if positive would discuss with pulmonology regarding ? IVC filter # R suprahilar mass # postobstructive pna - GS with GPC pairs - cont invanz D#3 # chest pain/ECG changes/indet trop - likely d/t PE, doubt ACS - hold asa now that on AC # mild thrombocytopenia: follow closely # FCFT ## chart reviewed CT reviewed CXR personally reviewed Subjective: had an episode of O2 desaturation last night; not complaining of significant shortness of breath now Objective: Vital Signs Temp Pulse Resp BP Pulse Ox 36.8 C 103 H 27 H 94/77 L 91 L 02/07/17 08:00 02/07/17 08:00 02/07/17 08:00 02/07/17 08:00 02/07/17 08:00 Microbiology 02/06/17 15:10 Gram Stain - Final Lung Right Upper Lobe - Bronchial Washings Laboratory Results 02/07/17 06:20 02/07/17 06:20 02/06/17 02/07/17 02/08/17 05:59 05:59 05:59 Intake Total 445 1930 Output Total 300 800 Balance 145 1130 PT 15.5 SEC (12.0-15.0) H 02/06/17 02:30 INR 1.23 (0.83-1.16) H 02/06/17 02:30 - Physical Exam Constitutional: other (resp distress) Ears, Nose, Mouth, Throat: moist mucous membranes, hearing normal, ears appear normal Cardiovascular: regular rate and rhythym, no murmur, rub, or gallop Respiratory: other (mild resp distress, remarkably clear respirs, mild rhonchi, no wheezes/rales) Gastrointestinal: normoactive bowel sounds, soft, non-tender abdomen, no palpable masses ICD10 Worksheet Patient Problems: Problems Problem Status Onset Appendicitis Acute Pulmonary embolism Acute Mass of upper lobe of right lung Acute
[2017-02-07] MEDS: ERTAPENEM 1 GM in NS 100 ML IV SCH (08:56)
[2017-02-07] MEDS: guaiFENesin 600 MG TAB.ER PO SCH ×2 (09:05→23:29)
[2017-02-07 13:25] LABS: BILIRUBIN,TOTAL 1.5 mg/dL (0.1-1.4); BILIRUBIN-CONJUGATED 0.5 mg/dL (0.0-0.5); TOTAL PROTEIN 6.3 g/dL (6.3-8.2)
--- NOTE | 2017-02-07 17:03 | SOAPPROG ---
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 With extensive metastatic disease at least locally to hilum, mediastinum, and lymph nodes in the neck. Oncology to see. Further tissues he is lymph node biopsy may be helpful in more extensive cancer cell typing for directed therapies. Right upper lobe obstruction: Secondary to 1. With possible postobstructive pneumonia. Cultures negative so far. On ertapenem. Hypoxemia: Secondary to issues above plus bleeding and aspiration locally associated with bronchoscopy. DVT/pulmonary embolism: On heparin. Will continue. Likely related to her malignancy. Pulmonary hypertension: Pulmonary artery pressures estimated at 60. I imagine this is secondary to acute. Plan: Oncology consultation with Dr. Bhagat. I will add steroids. Continue other therapies, heparin, oxygen, bronchodilators and supportive care. I discussed her cancer diagnosis with she, her , and her 2 daughters. Discussed with Oliver Pearson MD, Eden Bhagat MD, Tayo Mccain MD. 45 minutes spent directly with the patient, her family, and in discussions with physicians, reviewing results, etc. Subjective: Doing okay. More short of breath overnight that in this morning, on more oxygen. Did cough up some blood after the bronchoscopy, none now. Objective: Vital Signs Temp Pulse Resp BP Pulse Ox 36.8 C 100 16 94/77 L 95 02/07/17 08:00 02/07/17 11:41 02/07/17 11:41 02/07/17 08:00 02/07/17 11:41 Microbiology 02/06/17 15:10 Gram Stain - Final Lung Right Upper Lobe - Bronchial Washings 02/06/17 15:10 Mycobacterial Smear (OLIVA) - Final Lung Right Upper Lobe - Bronchial Washings Laboratory Results 02/07/17 06:20 02/07/17 06:20 02/06/17 02/07/17 02/08/17 05:59 05:59 05:59 Intake Total 445 1930 Output Total 300 800 600 Balance 145 1130 -600 PT 15.5 SEC (12.0-15.0) H 02/06/17 02:30 INR 1.23 (0.83-1.16) H 02/06/17 02:30 Right upper lobe endobronchial biopsy: Consistent with a carcinoma, most likely adeno, primary to the lung. Discussed with Dr Pearson. Lower extremity venous Doppler ultrasounds: Consistent with DVT below the knees bilaterally Physical Exam - Physical Exam General Appearance: alert, no apparent distress EENT: PERRL/EOMI, other (On Oxymizer at 12 L) Neck: lymphadenopathy (L) Respiratory: decreased breath sounds (On right), rales (Scattered rales present) , wheezing (Some wheezes in the upper lung zone consistent with a degree of fixed obstruction) Cardiac/Chest: tachycardia (Regular) Abdomen: normal bowel sounds, non-tender, soft Skin: normal color, warm/dry Extremities: pedal edema (Trace), swelling (Right lower extremity about a 0.5 inch bigger than the left) Neuro/Psych: no motor/sensory deficits, No cognition abnormalities ICD10 Worksheet Patient Problems: Problems Problem Status Onset Appendicitis Acute Pulmonary embolism Acute Mass of upper lobe of right lung Acute
[2017-02-07] MEDS: predniSONE 20 MG TAB PO SCH (18:20)
--- NOTE | 2017-02-07 19:52 | GCON ---
[f rep st] CONSULTATION ONCOLOGY CONSULTATION. REFERRING PHYSICIAN: Kyaw Arriola MD REASON FOR CONSULTATION: Non-small cell lung cancer. HISTORY OF PRESENT ILLNESS: Mrs. Wagner is a 56-year-old woman who has been previously healthy. She was treated for pneumonia in early January. A chest x -ray (01/01/2017) demonstrated a right pneumonia with denser consolidation in the right suprahilar region. Chest CT without contrast (01/09/2017) demonstrated a possible mass underlying the pneumonia. The right hilum was prominent, suggesting adenopathy. Mediastinal adenopathy (right paratracheal, subcarinal) present. Two subtle low density lesions were seen in the right lobe of the liver (1 in the caudate, 1 in the right lateral lower lobe). She was seen in the emergency room 01/29/2017 for back pain. She reports a long history of low back pain, since childhood. She now reports it has not been any different, however. She came back to the emergency room 02/05/2017 due to significant dyspnea. She was hypoxic, 79% on room air. CT angiogram demonstrated small volume, left lower lobe, subsegmental PE. Right suprahilar mass with right hilar adenopathy was present along with right paratracheal, subcarinal, and left hilar adenopathy. Supraclavicular adenopathy present. Bronchus to the right upper lobe was narrowed as well as narrowing of the central bronchi to the right middle lobe and right lower lobe. Images of the upper abdominal were normal. Lower extremity Doppler this morning demonstrated bilateral DVT in the calves. Superficial venous thrombosis present in the right greater saphenous extending from the calf to the proximal thigh, within 3 cm of the common femoral. She has been anticoagulated since admission. Bronchoscopy 02/06/2017 demonstrated compression of the right upper lobe without a definite endobronchial lesion. The right upper lobe was narrowed just beyond its takeoff. Cytology and biopsy were performed. Verbal report from Dr. Pearson today demonstrates adenocarcinoma consistent with lung primary. The patient's and 2 of their 3 daughters are present. She is quite short of breath without oxygen. She has lost 20 pounds in the last year intentionally with dietary changes. She has noted no real change in chronic low back pain. She has noted no other concerning symptoms. She has no unusual chemical or environmental exposures. She is a lifelong nonsmoker. PAST MEDICAL HISTORY: Chronic low back pain as above. PAST SURGICAL HISTORY: 1. Appendectomy, 2016. 2. Hysterectomy without oophorectomy for dysfunctional uterine bleeding in perimenopause. 3. Traumatic Achilles injury requiring surgery. SOCIAL HISTORY: She is . She has 3 adult daughters (ages 19, 21, 25). Two of her daughters are at in [place]. Her oldest is in pharmacy school at the [employer]. She works at [employer]. 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 She is a nonsmoker. No significant alcohol intake. FAMILY HISTORY: Her father had colon cancer at an older age, they think in his 70s. Her 3 daughters are healthy. OUTPATIENT MEDICATIONS: None. ALLERGIES: Povidone-iodine, soap. She had no reaction to her recent IV contrast. REVIEW OF SYSTEMS: CONSTITUTIONAL: No fevers, chills, sweats. Intentional weight loss per HPI. HEENT: No vision changes. CARDIOVASCULAR: No chest pain , lower extremity edema. RESPIRATORY: Per HPI. No pleurisy. GI: No nausea, vomiting, abdominal pain, diarrhea, constipation. BREASTS: No masses. She has had mammograms in the past, although reports it has been a while. MUSCULOSKELETAL: Per HPI. No new bony complaints. NEUROLOGIC: No headache, confusion, numbness, weakness, tingling. HEMATOLOGIC: No bleeding or bruising other than some mild hemoptysis following her bronchoscopy. PHYSICAL EXAMINATION: VITAL SIGNS: Blood pressure 137/97, pulse 113, respirations 18, 92% on 5 liters, temperature 36.5. GENERAL: Very pleasant woman who is alert, oriented.. HEENT: No scleral icterus. LYMPH: Left supraclavicular adenopathy with a collection of nodes, largest approximately 1.5 cm. No axillary adenopathy. CARDIOVASCULAR: Tachycardic rate and rhythm. No pretibial edema. LUNGS: Diminished breath sounds at the right apex with egophony. Left lung clear. ABDOMEN: Normal bowel sounds, soft, nontender, no organomegaly. NEUROLOGIC: Grossly nonfocal. BREASTS: No dominant masses, overlying skin changes, nipple discharge. SKIN: No rashes. NEURO: Grossly nonfocal. LABORATORY DATA: WBC 12.3, hemoglobin 13.5, platelets 136,000. Sodium 137, potassium 3.8, chloride 108, bicarbonate 20, BUN 9, creatinine 0.5, glucose 105. Calcium 8.4. Albumin 3.0. Total bilirubin 1.5, direct 0.5, normal transaminases and alkaline phosphatase. Therapeutic anti X-a level this afternoon (0.34). RADIOLOGIC STUDIES: Per HPI (02/05/2017). Echocardiogram demonstrates RVSP 60 with moderate reduction in right ventricular systolic function and mild to moderate dilation of the right ventricle. LVEF of 60-70%. Flattened septum consistent with RV pressure overload. IMPRESSION: 1. Advanced non-small cell lung cancer (adenocarcinoma) with right upper lobe obstruction and mediastinal adenopathy and left supraclavicular adenopathy. 2. Indeterminate hepatic lesions on earlier noncontrast chest CT. 3. Bilateral below the knee DVT, small subsegmental left lower lobe PE. 4. Pulmonary hypertension likely due to compressive mass and hypoxia. The PE is small volume and is probably not contributing much to that. I met with the patient, her , and their 2 daughters. We discussed the pathology and her imaging studies thus far. She has unresectable disease. We discussed other modalities of therapy including chemotherapy, targeted therapies , and radiation. I reviewed her case with Dr. Arriola and palliative radiation to the obstruction is warranted given her degree of hypoxia and symptoms. We discussed the need for systemic therapy. We reviewed the importance of molecular studies to determine whether or not she is a candidate for targeted therapies. I reviewed her pathology with Dr. Pearson and only a small amount of tissue remains. I recommend additional biopsy for tissue to send for molecular studies. This can be most easily obtained from the left supraclavicular adenopathy. I spoke with Dr. Cabrera, and either he or Dr. Farias will see her this weekend. I have already discussed with Dr. Pearson requested studies (EGFR, ALK, ROS1, PD-L1 , as well as broad genetic sequencing). We discussed that locally available clinical trials focus on maintenance, second line therapy after recurrence, or targeted therapy. Off trial, carboplatin/Taxol or carboplatin/pemetrexed would be appropriate (nonsquamous histology). Bevacizumab could be incorporated, but I would wait to start this until we are sure she is having no further hemoptysis (which was likely primarily due to biopsy). We discussed additional staging with CT of the abdomen and pelvis and a brain MRI. We discussed eventual PET scan, which can be performed as an outpatient. We discussed all of their questions. PLAN: 1. Left supraclavicular node biopsy for molecular testing (EGFR, ALK, ROS1, PD- L1, and broad molecular profiling. 2. CT abdomen and pelvis. 3. Brain MRI. 4. Radiation Oncology consultation on Friday. I have coordinated with Dr. Maria. 5. I would recommend not transitioning her to Coumadin, but treating her with full dose low molecular weight heparin as her treatment plan is developed. She will need a port if she does not have a molecular target. Right now, IV heparin is appropriate given her recent hemoptysis and upcoming biopsy. 6. Our service will be following her during her hospital stay and she will follow up with me as an outpatient. /[id number]/MODL MTDD
[2017-02-07] MEDS ORDERED: IOPAMIDOL (ISOVUE-300) 100 ML BTL IV ONE (20:03)
[2017-02-07] MEDS ORDERED: GADOBUTROL 10 ML VIAL IVP ONE (20:47)
[2017-02-08 05:46] LABS: % IMMATURE GRANULYOCYTES 0.2 % (0.0-1.1); ABSOLUTE IMMATURE GRANULOCYTES 0.02 10^3/uL (0.00-0.10); ADD DIFF? NO; ADD MORPH? NO; ADD SCAN? NO; ATYPICAL LYMPHOCYTE FLAG 0 (0-99); FRAGMENT RBC FLAG 0 (0-99); HEMOGLOBIN 13.1 g/dL (12.6-16.3); LEFT SHIFT FLG 0 (0-99); LIPEMIA HEMOLYSIS FLAG 80 (0-99); MEAN CELL HEMOGLOBIN 28.3 pg (27.9-34.1); MEAN CELL HEMOGLOBIN CONCENTR. 33.6 g/dL (32.4-36.7); MEAN CELL VOLUME 84.2 fL (81.5-99.8); MEAN PLATELET VOLUME 11.1 fL (8.7-11.7); PLATELET CLUMPS FLAG 0 (0-99); PLATELET COUNT 151 10^3/uL (150-400); RED BLOOD CELL COUNT 4.63 10^6/uL (4.18-5.33); RED CELL DISTRIBUTION WIDTH 14.7 % (11.5-15.2)
[2017-02-08] MEDS: LEVALBUTEROL 1.25 MG/3 ML DEYVIAL IH SCH ×4 (05:47→22:08)
[2017-02-08 06:24] LABS: ANION GAP 10 mEq/L (8-16); CALCIUM 8.8 mg/dL (8.5-10.4); CARBON DIOXIDE 23 mEq/l (22-31); CHLORIDE 106 mEq/L (97-110); CREATININE 0.5 mg/dL (0.6-1.0); GLOMERULAR FILTRATION RATE > 60; GLUCOSE 135 mg/dL (70-100); POTASSIUM 4.1 mEq/L (3.5-5.2); SODIUM 139 mEq/L (134-144)
--- NOTE | 2017-02-08 08:11 | SOAPPROG ---
SOAP Progress Note Assessment/Plan: Assessment: will arrange a supraclav node bx today/ ? port Plan:node bx 02/08/17 08:09 Objective: Vital Signs Temp Pulse Resp BP Pulse Ox 36.6 C 112 H 19 113/84 H 93 02/08/17 08:00 02/08/17 08:00 02/08/17 08:00 02/08/17 08:00 02/08/17 08:00 Microbiology 02/06/17 15:10 Gram Stain - Final Lung Right Upper Lobe - Bronchial Washings 02/06/17 15:10 Mycobacterial Smear (OLIVA) - Final Lung Right Upper Lobe - Bronchial Washings Laboratory Results 02/08/17 05:34 02/08/17 05:34 02/07/17 02/08/17 02/09/17 05:59 05:59 06:59 Intake Total 1930 300 Output Total 800 1200 Balance 1130 -900 PT 15.5 SEC (12.0-15.0) H 02/06/17 02:30 INR 1.23 (0.83-1.16) H 02/06/17 02:30 ICD10 Worksheet Patient Problems: Problems Problem Status Onset Mass of upper lobe of right lung Acute Pulmonary embolism Acute Appendicitis Acute
--- NOTE | 2017-02-08 08:36 | HOSPPROG ---
Hospitalist Progress Note Assessment/Plan: # cancer, likely lung primary - LN bx today, send for genetic profile - LN disease, bone disease # acute hypoxic resp failure, multifactorial: d/t inflammation from bronch, mass , PE, pna - not worse, but significant O2 requirement with tenuous status - may need transfer to ICU if worsens # LLL subsegmental PE - bilat LE DVTs, distal to knee - cont heparin gtt today # R heart strain - multifactorial # pericardial effusion, likely malignant # postobstructive pna - GS with GPC pairs - cont invanz D#4 - follow bronch cx # chest pain/ECG changes/indet trop - likely d/t PE, doubt ACS - hold asa now that on AC # mild thrombocytopenia: better today # FCFT ## High risk given very tenuous respiratory status and comorbidities Subjective: no change in dyspnea Objective: Vital Signs Temp Pulse Resp BP Pulse Ox 36.6 C 112 H 19 113/84 H 93 02/08/17 08:00 02/08/17 08:00 02/08/17 08:00 02/08/17 08:00 02/08/17 08:00 Microbiology 02/06/17 15:10 Gram Stain - Final Lung Right Upper Lobe - Bronchial Washings 02/06/17 15:10 Mycobacterial Smear (OLIVA) - Final Lung Right Upper Lobe - Bronchial Washings Laboratory Results 02/08/17 05:34 02/08/17 05:34 02/07/17 02/08/17 02/09/17 05:59 05:59 06:59 Intake Total 1930 300 Output Total 800 1200 Balance 1130 -900 PT 15.5 SEC (12.0-15.0) H 02/06/17 02:30 INR 1.23 (0.83-1.16) H 02/06/17 02:30 Vitals reviewed Pleasant, no acute distress Regular rate and rhythm, no murmurs rubs or gallops No respiratory distress, lungs clear to auscultation bilaterally, no wheezes or rales -Remarkably clear Abdomen soft nontender, nondistended, no hepatosplenomegaly left supraclavicular lymphadenopathy ICD10 Worksheet Patient Problems: Problems Problem Status Onset Appendicitis Acute Pulmonary embolism Acute Mass of upper lobe of right lung Acute
[2017-02-08] MEDS ORDERED: LIDOCAINE 1% 30 ML SDV ONE (09:38)
[2017-02-08] MEDS ORDERED: SKIN ADHESIVE (DERMABOND) 1 EACH TP ONE (09:38)
[2017-02-08] MEDS ORDERED: SODIUM BICARBONATE 10 MEQ/10 ML SYR IVP ONE (09:39)
[2017-02-08] MEDS ORDERED: BUPIVACAINE 0.5% 30 ML SDV ONE (09:39)
[2017-02-08] MEDS ORDERED: MIDAZOLAM 2 MG/2 ML VIAL ONE (10:23)
[2017-02-08] MEDS ORDERED: PROPOFOL 200 MG/20 ML VIAL ONE ×2 (10:40→10:57)
[2017-02-08] MEDS: ERTAPENEM 1 GM in NS 100 ML IV SCH (10:42)
--- NOTE | 2017-02-08 11:33 | POSTOPPROG ---
Post Op Note Date of Operation: 02/08/17 Surgeon: Aravind Farias Anesthesiologist: NAZARIO Anesthesia: IV Sedation Pre-op Diagnosis: SUPRACLAVICULAR ADENOPATHY Post-op Diagnosis: SAME Indication: OBTAIN DIAGNOSIS Procedure: LEFT SUPRACLAVICULAR SUPERFICIAL NODE DISSECTION Findings: SUSPICIOUS FOR METASTATIC CANCER, PATH PENDING Inf/Abcess present in the surg proc area at time of surgery?: No Depth: Deep Incisional (Fascial) EBL: Minimal Complications: 0 Specimen(s): 4 LYMPH NODES FRON 1.5 TO 2.5 CM
--- NOTE | 2017-02-08 11:44 | GCON ---
[f rep st] CONSULTATION HISTORY OF PRESENT ILLNESS: This is a 56-year-old female who appears to have a right upper lobe silvia g cancer with atelectasis to right upper lobe. She has evidence of metastatic disease with signific ant adenopathy in the left supraclavicular space as well as possible liver mets and other adenopathy on CT scan. Bronchoscopic biopsy reveals adenocarcinoma consistent with lung primary. I was consu lted to obtain additional tissue for better staging of her lung cancer. Risks and options have been fully discussed, and she wishes to proceed. PAST MEDICAL HISTORY: Includes hysterectomy, oophorectomy, Achilles heel surgery, appendectomy. REVIEW OF SYSTEMS: Reveals some chronic low back pain. She is a nonsmoker. ALLERGIES: Iodine. PRESENT MEDICATIONS: None PHYSICAL EXAMINATION: GENERAL: A cooperative 56-year-old female in no acute distress. HEAD AND NE CK: Significant adenopathy in the left supraclavicular space. She is anicteric. CARDIAC: Regular rhythm. CHEST: Decreased breath sounds in the right apex. ABDOMEN: Soft and no ntender. NEUROLOGIC: Symmetrical. Extremities are benign. IMPRESSION: Probably metastatic colon cancer. PLAN: Supraclavicular node biopsy for further evaluation for possible lung cancer. Risks and optio ns again have been fully discussed, and she wishes to proceed with a supraclavicular node biopsy. /[id number]/MODL
--- NOTE | 2017-02-08 11:49 | GOP ---
[f rep st] OPERATIVE REPORT DATE OF OPERATION: 02/08/2017 SURGEON: Aravind Farias MD DIRECTOR REGULATORY AGENCY: None. ANESTHESIOLOGIST: Dr. Lozano. PREOPERATIVE DIAGNOSIS: Probable metastatic lung cancer. POSTOPERATIVE DIAGNOSIS: Probable metastatic lung cancer, path pending. PROCEDURE PERFORMED: FINDINGS: Patient with multiple enlarged hard nodes in the scalene fat pad in the left supraclavicu lar space; the largest node removed was 2.5 cm. These were sent to Pathology for further testing. DESCRIPTION OF PROCEDURE: PROCEDURES: Left scalene lymph node biopsies. PROCEDURE: The patient was taken to the operating room where she received IV sedation and monitored anesthesia care by Dr. Lozano. She was placed in a supine position and prepped and draped in the [facility] sterile fashion with the neck slightly extended. Using 1% Xylocaine local infiltration, a trans verse incision was made over the palpable adenopathy in the left neck. Dissection extended down thr ough the platysma and subcutaneous tissue into the scalene fat pad. This area was opened up, and mu ltiple nodes were dissected free and removed to send for pathology. Hemostasis was obtained with he moclips and electrocautery. Wound was irrigated and closed in layers using 3-0 Vicryl for the cervi nicole fascia, 3-0 Vicryl for the platysma, and 4-0 Monocryl subcuticular stitch for the skin. All lay ers were infiltrated with Marcaine. The wounds were dressed. She tolerated the procedure well. Christiane lópez was taken to the recovery room in good condition. There were no complications. /[id number]/MODL
[2017-02-08] MEDS: guaiFENesin 600 MG TAB.ER PO SCH ×2 (12:32→21:26)
[2017-02-08] MEDS: predniSONE 20 MG TAB PO SCH (12:32)
--- NOTE | 2017-02-08 13:10 | SOAPPROG ---
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 4) Destructive lesion Right pelvis (metastatic disease) 5) ? isolated liver metastasis Plan: Patient's CT abd/pelvis shows a possible liver metastasis and 2 bone lesions in Right pelvis. These findings were discussed with the patient and her . I explained that her disease is not curable and that treatment is palliative. Verbal pathology report is adenocarcinoma. I have discussed her case with Dr. Cari Arias of Radiation Oncology. The initial plan is for a short course of palliative XRT to open up her Right lung. Dr. Arias will see the patient tomorrow morning and is planning to deliver her first fraction of XRT tomorrow. Patient had a LN biopsy this morning to send for additional molecular studies ( EGFR mutation status/ ROS mutation/ ALK mutation). Assuming that she is mutation negative, would plan palliative chemotherapy after she completes radiation. Continue Prednisone. 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 She will continue on anticoagulation for her DVT/PE. 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 Her PE is small volume and likely is only minimally contributing to her hypoxia. Plan discussed with patient, , Dr. Mccain, Dr. Arias, and nursing. 02/08/17 13:07 02/08/17 13:18 02/08/17 13:32 Subjective: Patient had Left cervical LN biopsy done to obtain additional tissue. She remains on a high flow oxygen (12 L/min) Her is at the bedside Objective: Vital Signs Temp Pulse Resp BP Pulse Ox 36.6 C 103 H 12 134/96 H 92 02/08/17 12:25 02/08/17 12:25 02/08/17 12:25 02/08/17 12:25 02/08/17 12:25 Microbiology 02/06/17 15:10 Gram Stain - Final Lung Right Upper Lobe - Bronchial Washings Bronchial Washings Culture - Final 02/06/17 15:10 Mycobacterial Smear (OLIVA) - Final Lung Right Upper Lobe - Bronchial Washings Laboratory Results 02/08/17 05:34 02/08/17 05:34 02/07/17 02/08/17 02/09/17 05:59 05:59 06:59 Intake Total 1930 300 800 Output Total 800 1200 0 Balance 1130 -900 800 PT 15.5 SEC (12.0-15.0) H 02/06/17 02:30 INR 1.23 (0.83-1.16) H 02/06/17 02:30 Physical Exam - Physical Exam General Appearance: alert, no apparent distress EENT: PERRL/EOMI Neck: other (Bandage Left neck C/D/I) Respiratory: other (Mildly decreased BS Right hemithorax, but she is moving air on the Right side) Cardiac/Chest: regular rate, rhythm Abdomen: non-tender, soft Skin: normal color Neuro/Psych: alert, normal mood/affect ICD10 Worksheet Patient Problems: Problems Problem Status Onset Mass of upper lobe of right lung Acute Pulmonary embolism Acute Appendicitis Acute
[2017-02-08] MEDS ORDERED: HEPARIN 10,000 UNIT/10 ML MDV IVP PRN (14:32)
[2017-02-08] MEDS ORDERED: HEPARIN/DEXTROSE 500 ML IV SCH (15:00)
--- NOTE | 2017-02-08 18:36 | SOAPPROG ---
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 With extensive metastatic disease. Appreciate Oncology evaluations. Status post left supraclavicular lymph node biopsy. Right upper lobe obstruction: Secondary to 1. With possible postobstructive pneumonia. Cultures negative so far. On ertapenem. Hypoxemia: Secondary to issues above plus bleeding and aspiration locally associated with bronchoscopy. DVT/pulmonary embolism: On heparin. Will continue. Likely related to her malignancy. Pulmonary hypertension: Pulmonary artery pressures estimated at 60. I imagine this is secondary to hypoxemia, malignancy, less likely pulmonary embolism which was quite small. Plan: Continue present care. Continue oxygen, bronchodilator therapy and steroids. Will repeat x-ray in the a.m... Subjective: She feels her breathing is little bit better. Status post lymph node biopsy. Objective: Vital Signs Temp Pulse Resp BP Pulse Ox 36.6 C 114 H 20 133/88 H 94 02/08/17 16:05 02/08/17 16:22 02/08/17 16:22 02/08/17 16:05 02/08/17 16:22 Microbiology 02/06/17 15:10 Gram Stain - Final Lung Right Upper Lobe - Bronchial Washings Bronchial Washings Culture - Final 02/06/17 15:10 Mycobacterial Smear (OLIVA) - Final Lung Right Upper Lobe - Bronchial Washings Laboratory Results 02/08/17 05:34 02/08/17 05:34 02/07/17 02/08/17 02/09/17 05:59 05:59 06:59 Intake Total 1930 300 800 Output Total 800 1200 0 Balance 1130 -900 800 PT 15.5 SEC (12.0-15.0) H 02/06/17 02:30 INR 1.23 (0.83-1.16) H 02/06/17 02:30 Physical Exam - Physical Exam General Appearance: alert, no apparent distress EENT: other (On Oxymizer at 13 L) Neck: lymphadenopathy (L) Respiratory: decreased breath sounds, other (Improved aeration over the right upper lobe) Cardiac/Chest: tachycardia Abdomen: normal bowel sounds, non-tender, soft Skin: normal color, warm/dry Extremities: non-tender (Lower extremities), pedal edema (Trace), swelling ( Right lower extremity approximately 0.5 inch larger than left) Neuro/Psych: no motor/sensory deficits, No cognition abnormalities ICD10 Worksheet Patient Problems: Problems Problem Status Onset Appendicitis Acute Pulmonary embolism Acute Mass of upper lobe of right lung Acute
[2017-02-08] MEDS: ACETAMINOPHEN 325 MG TAB PO PRN (21:26)
[2017-02-08] MEDS: CYCLOBENZAPRINE 10 MG TAB PO SCH (23:04)
[2017-02-09] MEDS: LEVALBUTEROL 1.25 MG/3 ML DEYVIAL IH SCH ×4 (05:18→20:37)
[2017-02-09 06:14] LABS: ALANINE AMINOTRANSFERASE 48 IU/L (9-52); ALKALINE PHOSPHATASE 133 IU/L (38-126); ANION GAP 9 mEq/L (8-16); ASPARTATE AMINOTRANSFERASE 22 IU/L (14-46); BILIRUBIN,TOTAL 0.6 mg/dL (0.1-1.4); CALCIUM 8.8 mg/dL (8.5-10.4); CARBON DIOXIDE 24 mEq/l (22-31); CHLORIDE 106 mEq/L (97-110); CREATININE 0.5 mg/dL (0.6-1.0); GLOMERULAR FILTRATION RATE > 60; GLUCOSE 121 mg/dL (70-100); POTASSIUM 4.2 mEq/L (3.5-5.2); SODIUM 139 mEq/L (134-144); TOTAL PROTEIN 6.2 g/dL (6.3-8.2)
[2017-02-09] MEDS: ACETAMINOPHEN 325 MG TAB PO PRN ×2 (06:40→19:30)
[2017-02-09] MEDS: ERTAPENEM 1 GM in NS 100 ML IV SCH (08:26)
[2017-02-09] MEDS: ENOXAPARIN 80 MG/0.8 ML SYR SC SCH ×2 (08:26→20:35)
[2017-02-09] MEDS: guaiFENesin 600 MG TAB.ER PO SCH ×2 (08:27→20:35)
[2017-02-09] MEDS: predniSONE 20 MG TAB PO SCH (08:27)
--- NOTE | 2017-02-09 08:44 | HOSPPROG ---
Hospitalist Progress Note Assessment/Plan: # likely lung adenocarcinoma with mets - s/p LN bx, send for genetic profile - XRT today given significant obstruction # acute hypoxic resp failure, multifactorial: d/t inflammation from bronch, mass , PE, pna - not worse, but significant O2 requirement with tenuous status # LLL subsegmental PE - bilat LE DVTs, distal to knee - transition heparin gtt -> lovenox today # R heart strain - multifactorial # pericardial effusion, likely malignant: no evidence of tamponade # postobstructive pna - GS with GPC pairs - cont invanz D#5 - follow bronch cx # chest pain/ECG changes/indet trop - likely d/t PE, doubt ACS - hold asa now that on AC # mild thrombocytopenia: better today # FCFT ## High risk given tenuous respiratory status and comorbidities Subjective: breathing feels about the same; O2 lowered overnight Objective: Vital Signs Temp Pulse Resp BP Pulse Ox 36.6 C 103 H 15 121/90 H 94 02/09/17 08:15 02/09/17 08:15 02/09/17 08:15 02/09/17 08:15 02/09/17 08:15 Microbiology 02/06/17 15:10 Gram Stain - Final Lung Right Upper Lobe - Bronchial Washings Bronchial Washings Culture - Final Laboratory Results 02/08/17 05:34 02/09/17 04:30 02/08/17 02/09/17 02/10/17 04:59 05:59 05:59 Intake Total Output Total Balance PT 15.5 SEC (12.0-15.0) H 02/06/17 02:30 INR 1.23 (0.83-1.16) H 02/06/17 02:30 - Physical Exam Constitutional: no apparent distress, appears nourished Cardiovascular: regular rate and rhythym, no murmur, rub, or gallop, systolic murmur Respiratory: no respiratory distress, other (mild RUL rhonchi, remarkable clear ; mild resp distress), No expiratory wheeze, No inspiratory crackles Gastrointestinal: normoactive bowel sounds, soft, non-tender abdomen, no palpable masses ICD10 Worksheet Patient Problems: Problems Problem Status Onset Appendicitis Acute Pulmonary embolism Acute Mass of upper lobe of right lung Acute
--- NOTE | 2017-02-09 13:52 | SOAPPROG ---
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 4) Destructive lesion Right pelvis (metastatic disease) 5) ? isolated liver metastasis Plan: Patient received her first dose of palliative XRT today. She feels that her breathing is better, though she remains on 10L/min O2. Plan to complete an initial course of XRT prior to initiation of definitive therapy. Her CT abd/pelvis demonstrates a possible liver metastasis and 2 bone lesions in Right pelvis. These findings have been discussed with the patient and her . She is not having any pain in the area of her bone metastasis. Verbal pathology report is adenocarcinoma. We await the results of her molecular studies.(EGFR mutation status/ ROS mutation/ ALK mutation). Assuming that she is mutation negative, would plan palliative chemotherapy after she completes radiation. Continue Prednisone. She will continue on anticoagulation for her DVT/PE. 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 She has been started on this. Her PE is small volume and likely is only minimally contributing to her hypoxia. Plan discussed with patient, . Their questions were answered. 02/08/17 13:07 02/08/17 13:18 02/08/17 13:32 02/09/17 13:47 Subjective: Feels her breathing is better, though remains on 10L/min O2. Denies cough or chest pain. She received her fir fraction of palliative XRT this morning. at bedside. Objective: Vital Signs Temp Pulse Resp BP Pulse Ox 36.6 C 103 H 16 121/90 H 94 02/09/17 08:15 02/09/17 11:56 02/09/17 11:56 02/09/17 08:15 02/09/17 08:15 Microbiology 02/06/17 15:10 Gram Stain - Final Lung Right Upper Lobe - Bronchial Washings Bronchial Washings Culture - Final Laboratory Results 02/08/17 05:34 02/09/17 04:30 02/08/17 02/09/17 02/10/17 04:59 05:59 05:59 Intake Total Output Total Balance PT 15.5 SEC (12.0-15.0) H 02/06/17 02:30 INR 1.23 (0.83-1.16) H 03/09/17 02:30 - Time Spent With Patient Time Spent With Patient: 25 minutes Physical Exam - Physical Exam General Appearance: alert, no apparent distress EENT: PERRL/EOMI Respiratory: other (Slightly diminished BS on Right) Cardiac/Chest: regular rate, rhythm Abdomen: non-tender, soft Neuro/Psych: alert, normal mood/affect ICD10 Worksheet Patient Problems: Problems Problem Status Onset Mass of upper lobe of right lung Acute Pulmonary embolism Acute Appendicitis Acute
--- NOTE | 2017-02-09 15:52 | SOAPPROG ---
SOAP Progress Note Assessment/Plan: Assessment/Plan: 56 Y F likely metastatic lung adenoCA c obstruction and multiple sequelae, pericardial effusion, PE, high O2 needs, s/p L supraclavicular LB bx, POD#1. Wound check. Biopsy inc c/d/i. Moderate swelling. Appropriately TTP. No erythema. Surgery site healing well. Ok to shower over this. Final path pending. Defer to other teams for further care. 02/09/17 15:49 Objective: Vital Signs Temp Pulse Resp BP Pulse Ox 36.6 C 103 H 16 121/90 H 94 02/09/17 08:15 02/09/17 11:56 02/09/17 11:56 02/09/17 08:15 02/09/17 08:15 Microbiology 02/06/17 15:10 Gram Stain - Final Lung Right Upper Lobe - Bronchial Washings Bronchial Washings Culture - Final Laboratory Results 02/08/17 05:34 02/09/17 04:30 02/08/17 02/09/17 02/10/17 04:59 05:59 05:59 Intake Total Output Total Balance PT 15.5 SEC (12.0-15.0) H 02/06/17 02:30 INR 1.23 (0.83-1.16) H 02/06/17 02:30 ICD10 Worksheet Patient Problems: Problems Problem Status Onset Mass of upper lobe of right lung Acute Pulmonary embolism Acute Appendicitis Acute
--- NOTE | 2017-02-09 18:31 | SOAPPROG ---
SOAP Progress Note Assessment/Plan: Assessment: Carcinoma lung: adeno, right upper lobe. She has extensive metastatic disease. Appreciate Oncology evaluations. Status post left supraclavicular lymph node biopsy. Right upper lobe obstruction: Secondary to 1. With possible postobstructive pneumonia. Cultures negative so far. On ertapenem, prednisone and bronchodilator therapies. Hypoxemia: Secondary to issues above plus bleeding and aspiration locally associated with bronchoscopy on 02/06. Still coughing up a small amount of blood , likely related to her anticoagulation and her malignancy. DVT/pulmonary embolism: On heparin. Will continue. Likely related to her malignancy. Pulmonary hypertension: Pulmonary artery pressures estimated at 60. I imagine this is secondary to hypoxemia, malignancy, less likely pulmonary embolism which was quite small. Plan: Continue present care. Continue oxygen, bronchodilator therapy and steroids. Plans per oncology. She likely will need to go home eventually on oxygen, nebulized treatments, and tapering steroids. I will sign off at this point. Please call if needed. Dr. Swartz will be in the ICU/hospital this upcoming week. Subjective: Feels a little bit better, breathing more easily. Oxygen down to 10 L. Status post her 1st radiation treatment of 5 Objective: Vital Signs Temp Pulse Resp BP Pulse Ox 36.6 C 102 H 16 138/90 H 94 02/09/17 15:55 02/09/17 17:45 02/09/17 17:45 02/09/17 15:55 02/09/17 17:45 Microbiology 02/06/17 15:10 Gram Stain - Final Lung Right Upper Lobe - Bronchial Washings Bronchial Washings Culture - Final Laboratory Results 02/08/17 05:34 02/09/17 04:30 02/08/17 02/09/17 02/10/17 04:59 05:59 05:59 Intake Total 2310 Output Total Balance 2310 PT 15.5 SEC (12.0-15.0) H 02/06/17 02:30 INR 1.23 (0.83-1.16) H 02/06/17 02:30 CXR: Persistent right upper lobe consolidation/atelectasis with increased markings below. Small effusion. Relatively large cardiac silhouette. Pericardial effusion seen CT the abdomen from yesterday. Physical Exam - Physical Exam General Appearance: alert, no apparent distress EENT: other (Oxymizer in place) Neck: lymphadenopathy (L) (Dressed from biopsy) Respiratory: decreased breath sounds (Coarse breath sounds present on the right) , rales (Rales at right base), wheezing (Few fixed wheezes/airway sounds anterior right upper chest), No rhonchi Cardiac/Chest: tachycardia, No friction rub Abdomen: normal bowel sounds, non-tender, soft Skin: normal color, warm/dry Extremities: other (Right leg slightly larger than left without significant edema) Neuro/Psych: no motor/sensory deficits, No cognition abnormalities ICD10 Worksheet Patient Problems: Problems Problem Status Onset Appendicitis Acute Pulmonary embolism Acute Mass of upper lobe of right lung Acute
[2017-02-09] MEDS: CYCLOBENZAPRINE 10 MG TAB PO SCH (20:35)
[2017-02-10] MEDS: ACETAMINOPHEN 325 MG TAB PO PRN ×2 (02:11→20:52)
[2017-02-10 04:55] LABS: % IMMATURE GRANULYOCYTES 0.4 % (0.0-1.1); ABSOLUTE IMMATURE GRANULOCYTES 0.05 10^3/uL (0.00-0.10); ADD DIFF? NO; ADD MORPH? NO; ADD SCAN? NO; ATYPICAL LYMPHOCYTE FLAG 0 (0-99); FRAGMENT RBC FLAG 0 (0-99); HEMATOCRIT 37.1 % (38.0-47.0); HEMOGLOBIN 12.3 g/dL (12.6-16.3); LEFT SHIFT FLG 0 (0-99); LIPEMIA HEMOLYSIS FLAG 80 (0-99); MEAN CELL HEMOGLOBIN 28.3 pg (27.9-34.1); MEAN CELL HEMOGLOBIN CONCENTR. 33.2 g/dL (32.4-36.7); MEAN CELL VOLUME 85.3 fL (81.5-99.8); MEAN PLATELET VOLUME 11.3 fL (8.7-11.7); PLATELET CLUMPS FLAG 0 (0-99); PLATELET COUNT 193 10^3/uL (150-400); RED BLOOD CELL COUNT 4.35 10^6/uL (4.18-5.33); RED CELL DISTRIBUTION WIDTH 14.9 % (11.5-15.2)
[2017-02-10 05:07] LABS: ANION GAP 6 mEq/L (8-16); CALCIUM 8.9 mg/dL (8.5-10.4); CARBON DIOXIDE 24 mEq/l (22-31); CHLORIDE 107 mEq/L (97-110); CREATININE 0.6 mg/dL (0.6-1.0); GLOMERULAR FILTRATION RATE > 60; GLUCOSE 88 mg/dL (70-100); POTASSIUM 4.1 mEq/L (3.5-5.2); SODIUM 137 mEq/L (134-144)
[2017-02-10] MEDS: LEVALBUTEROL 1.25 MG/3 ML DEYVIAL IH SCH ×4 (05:10→22:19)
[2017-02-10] MEDS: predniSONE 20 MG TAB PO SCH (08:35)
[2017-02-10] MEDS: ENOXAPARIN 80 MG/0.8 ML SYR SC SCH ×2 (08:36→20:51)
[2017-02-10] MEDS: guaiFENesin 600 MG TAB.ER PO SCH ×2 (08:36→21:36)
[2017-02-10] MEDS: ERTAPENEM 1 GM in NS 100 ML IV SCH (08:39)
--- NOTE | 2017-02-10 09:37 | HOSPPROG ---
Hospitalist Progress Note Assessment/Plan: # lung adenocarcinoma with mets - s/p LN bx, send for genetic profile - XRT today given significant obstruction - prednisone # acute hypoxic resp failure, multifactorial: d/t inflammation from bronch, mass , PE, pna - not worse, but significant O2 requirement with tenuous status # LLL subsegmental PE - bilat LE DVTs, distal to knee - cont lovenox # R heart strain - multifactorial # pericardial effusion, likely malignant: no evidence of tamponade # postobstructive pna - GS with GPC pairs - cont invanz D#6 - follow bronch cx # chest pain/ECG changes/indet trop - likely d/t PE, doubt ACS - hold asa now that on AC # mild thrombocytopenia: better today # FCFT # dispo - needs a few more days inpatient ## Subjective: breathing feels better today Objective: Vital Signs Temp Pulse Resp BP Pulse Ox 36.7 C 100 20 139/93 H 94 02/10/17 07:56 02/10/17 07:56 02/10/17 07:56 02/10/17 07:56 02/10/17 07:56 Laboratory Results 02/10/17 03:40 02/10/17 03:40 02/09/17 02/10/17 02/11/17 05:59 05:59 05:59 Intake Total 2560 Output Total Balance 2560 PT 15.5 SEC (12.0-15.0) H 02/06/17 02:30 INR 1.23 (0.83-1.16) H 02/06/17 02:30 - Physical Exam Constitutional: no apparent distress, appears nourished Cardiovascular: regular rate and rhythym, no murmur, rub, or gallop Respiratory: no respiratory distress, no rales or rhonchi, clear to auscultation Gastrointestinal: normoactive bowel sounds, soft, non-tender abdomen, no palpable masses ICD10 Worksheet Patient Problems: Problems Problem Status Onset Appendicitis Acute Pulmonary embolism Acute Mass of upper lobe of right lung Acute
--- NOTE | 2017-02-10 12:38 | SOAPPROG ---
SOAP Progress Note Assessment/Plan: Assessment/Plan: 56 yo woman w metastatic adenoca of RML w obstruction causing hypoxemia 1. Stage IV adenoca of lung - nonsmoker, molecular studies pending CT abd/pelvis demonstrates possible liver mets and 2 bone lesions in R pelvis; MRI brain negative undergoing XRT for obstructive presentation which started this weekend will need palliative chemo vs targeted therapy for systemic treatment once she completes XRT 2. Hypoxemia - 2/2 adenoca + postobx PNA O2 requirements dropping w XRT on IV abx and steroids 3. Small volume PE/DVT - on lovenox 4. Bone lesions - no pain currently; discuss bisphosphonate as outpt 02/10/17 12:35 02/10/17 12:38 02/10/17 12:40 Subjective: Pt reports breathing better today Denies new pain Objective: Vital Signs Temp Pulse Resp BP Pulse Ox 36.7 C 102 H 19 136/94 H 92 02/10/17 11:46 02/10/17 11:46 02/10/17 11:46 02/10/17 11:46 02/10/17 11:46 Laboratory Results 02/10/17 03:40 02/10/17 03:40 02/09/17 02/10/17 02/11/17 05:59 05:59 05:59 Intake Total 2560 Output Total Balance 2560 PT 15.5 SEC (12.0-15.0) H 02/06/17 02:30 INR 1.23 (0.83-1.16) H 02/06/17 02:30 Gen - NAD, Oxymizer on w 8LO2 HEENT - anicteric CV - RRR Chest - crackles RML; otherwise moving air well Abd - soft, NT, BS+ Ext - no edema Neuro - nonfocal ICD10 Worksheet Patient Problems: Problems Problem Status Onset Mass of upper lobe of right lung Acute Pulmonary embolism Acute Appendicitis Acute
[2017-02-10] MEDS: CYCLOBENZAPRINE 10 MG TAB PO SCH (21:36)
[2017-02-11] MEDS: ACETAMINOPHEN 325 MG TAB PO PRN ×2 (02:54→21:45)
[2017-02-11 04:30] LABS: % IMMATURE GRANULYOCYTES 0.4 % (0.0-1.1); ABSOLUTE IMMATURE GRANULOCYTES 0.05 10^3/uL (0.00-0.10); ADD DIFF? NO; ADD MORPH? NO; ADD SCAN? NO; ATYPICAL LYMPHOCYTE FLAG 0 (0-99); FRAGMENT RBC FLAG 0 (0-99); HEMATOCRIT 38.8 % (38.0-47.0); HEMOGLOBIN 12.7 g/dL (12.6-16.3); LEFT SHIFT FLG 0 (0-99); LIPEMIA HEMOLYSIS FLAG 80 (0-99); MEAN CELL HEMOGLOBIN 28.2 pg (27.9-34.1); MEAN CELL HEMOGLOBIN CONCENTR. 32.7 g/dL (32.4-36.7); MEAN PLATELET VOLUME 10.9 fL (8.7-11.7); PLATELET CLUMPS FLAG 10 (0-99); PLATELET COUNT 214 10^3/uL (150-400); RED BLOOD CELL COUNT 4.51 10^6/uL (4.18-5.33); RED CELL DISTRIBUTION WIDTH 14.6 % (11.5-15.2)
[2017-02-11 05:05] LABS: ANION GAP 9 mEq/L (8-16); CARBON DIOXIDE 23 mEq/l (22-31); CHLORIDE 105 mEq/L (97-110); CREATININE 0.6 mg/dL (0.6-1.0); GLOMERULAR FILTRATION RATE > 60; GLUCOSE 93 mg/dL (70-100); SODIUM 137 mEq/L (134-144)
[2017-02-11] MEDS: LEVALBUTEROL 1.25 MG/3 ML DEYVIAL IH SCH ×4 (05:23→21:30)
[2017-02-11] MEDS: ERTAPENEM 1 GM in NS 100 ML IV SCH (10:00)
[2017-02-11] MEDS: guaiFENesin 600 MG TAB.ER PO SCH ×2 (10:00→21:46)
[2017-02-11] MEDS: ENOXAPARIN 80 MG/0.8 ML SYR SC SCH ×2 (10:00→21:44)
[2017-02-11] MEDS: predniSONE 20 MG TAB PO SCH (10:00)
--- NOTE | 2017-02-11 10:21 | HOSPPROG ---
Hospitalist Progress Note Assessment/Plan: # lung adenocarcinoma with mets - s/p LN bx, send for genetic profile - further treatment per Oncology * getting palliative radiation currently # acute hypoxic resp failure, multifactorial: d/t inflammation from bronch, mass , PE, pna * improving with steroids, radiation, antibiotics and treatment of PE # LLL subsegmental PE - bilat LE DVTs, distal to knee - cont lovenox # R heart strain - multifactorial # pericardial effusion, likely malignant: no evidence of tamponade # postobstructive pna - GS with GPC pairs - cont invanz D#7 * will probably stop within the next couple days - follow bronch cx # chest pain/ECG changes/indet trop - likely d/t PE, doubt ACS - hold asa now that on AC # mild thrombocytopenia: resolved # FCFT # dispo - needs a few more days inpatient Subjective: continues to improve slowly. No new complaints Objective: Vital Signs Temp Pulse Resp BP Pulse Ox 36.7 C 101 H 20 121/97 H 92 02/11/17 08:00 02/11/17 08:00 02/11/17 08:00 02/11/17 08:00 02/11/17 08:00 Laboratory Results 02/11/17 03:36 02/11/17 03:36 02/10/17 02/11/17 02/12/17 05:59 05:59 05:59 Intake Total 2560 2555 580 Balance 2560 2555 580 PT 15.5 SEC (12.0-15.0) H 02/06/17 02:30 INR 1.23 (0.83-1.16) H 02/06/17 02:30 chest x-ray 312 personally reviewed interpreted - collapse versus dense consolidation of right upper lobe with infiltrates in the right lower lobe discussed with Oncology - Physical Exam Constitutional: no apparent distress, appears nourished, not in pain Eyes: anicteric sclera, EOMI Ears, Nose, Mouth, Throat: moist mucous membranes, hearing normal, ears appear normal Cardiovascular: regular rate and rhythym, no murmur, rub, or gallop Respiratory: no respiratory distress, no rales or rhonchi, clear to auscultation Gastrointestinal: normoactive bowel sounds, soft, non-tender abdomen, no palpable masses Skin: warm Neurologic: AAOx3 Psychiatric: interacting appropriately, not anxious, not encephalopathic, thought process linear ICD10 Worksheet Patient Problems: Problems Problem Status Onset Mass of upper lobe of right lung Acute Pulmonary embolism Acute Appendicitis Acute
--- NOTE | 2017-02-11 14:30 | SOAPPROG ---
SOAP Progress Note Assessment/Plan: Assessment/Plan: 56 yo woman w metastatic adenoCa of RML w obstruction causing hypoxemia 1. Stage IV adenoca of lung - nonsmoker, lymph node bx and molecular studies pending CT abd/pelvis demonstrates possible liver mets and 2 bone lesions in R pelvis; MRI brain negative undergoing XRT for obstructive presentation which started weekend of 02/07/17 will need palliative chemo vs targeted therapy for systemic treatment once she completes XRT 2. Hypoxemia - 2/2 adenoca + postobx PNA O2 requirements dropping w XRT on IV abx and steroids 3. Small volume PE/DVT - on lovenox 4. Bone lesions - no pain currently; discuss bisphosphonate as outpt 02/11/17 14:27 Subjective: No acute events on 7L O2 now and doing well reports more productive cough Objective: Vital Signs Temp Pulse Resp BP Pulse Ox 37.1 C 107 H 20 147/92 H 91 L 02/11/17 12:00 02/11/17 12:00 02/11/17 12:00 02/11/17 12:00 02/11/17 12:00 Microbiology 02/06/17 15:10 Mycobacterial Smear (OLIVA) - Final Lung Right Upper Lobe - Bronchial Washings Laboratory Results 02/11/17 03:36 02/11/17 03:36 02/10/17 02/11/17 02/12/17 05:59 05:59 05:59 Intake Total 2560 2555 1030 Balance 2560 2555 1030 PT 15.5 SEC (12.0-15.0) H 02/06/17 02:30 INR 1.23 (0.83-1.16) H 02/06/17 02:30 Gen - wearing O2 face mask, NAD HEENT - anicteric CV - RRR Chest - moving air better on right side Ext - no sig edema Neuro - nonfocal ICD10 Worksheet Patient Problems: Problems Problem Status Onset Mass of upper lobe of right lung Acute Pulmonary embolism Acute Appendicitis Acute
[2017-02-11] MEDS: CYCLOBENZAPRINE 10 MG TAB PO SCH (21:46)
[2017-02-12] MEDS: ACETAMINOPHEN 325 MG TAB PO PRN (03:38)
[2017-02-12] MEDS: LEVALBUTEROL 1.25 MG/3 ML DEYVIAL IH SCH ×4 (04:54→22:35)
[2017-02-12 05:10] LABS: % IMMATURE GRANULYOCYTES 0.7 % (0.0-1.1); ABSOLUTE IMMATURE GRANULOCYTES 0.08 10^3/uL (0.00-0.10); ADD DIFF? NO; ADD MORPH? NO; ADD SCAN? NO; ATYPICAL LYMPHOCYTE FLAG 0 (0-99); FRAGMENT RBC FLAG 0 (0-99); HEMOGLOBIN 12.5 g/dL (12.6-16.3); LEFT SHIFT FLG 0 (0-99); LIPEMIA HEMOLYSIS FLAG 80 (0-99); MEAN CELL HEMOGLOBIN 27.4 pg (27.9-34.1); MEAN CELL HEMOGLOBIN CONCENTR. 32.1 g/dL (32.4-36.7); MEAN CELL VOLUME 85.5 fL (81.5-99.8); MEAN PLATELET VOLUME 10.4 fL (8.7-11.7); PLATELET CLUMPS FLAG 10 (0-99); PLATELET COUNT 223 10^3/uL (150-400); RED BLOOD CELL COUNT 4.56 10^6/uL (4.18-5.33); RED CELL DISTRIBUTION WIDTH 14.5 % (11.5-15.2)
[2017-02-12 05:25] LABS: ANION GAP 8 mEq/L (8-16); CARBON DIOXIDE 25 mEq/l (22-31); CHLORIDE 104 mEq/L (97-110); CREATININE 0.6 mg/dL (0.6-1.0); GLOMERULAR FILTRATION RATE > 60; GLUCOSE 81 mg/dL (70-100); POTASSIUM 4.1 mEq/L (3.5-5.2); SODIUM 137 mEq/L (134-144)
[2017-02-12] MEDS: predniSONE 20 MG TAB PO SCH (08:21)
[2017-02-12] MEDS: ENOXAPARIN 80 MG/0.8 ML SYR SC SCH ×2 (08:21→21:50)
[2017-02-12] MEDS: ERTAPENEM 1 GM in NS 100 ML IV SCH (08:21)
[2017-02-12] MEDS: guaiFENesin 600 MG TAB.ER PO SCH ×2 (08:22→21:50)
--- NOTE | 2017-02-12 09:27 | HOSPPROG ---
Hospitalist Progress Note Assessment/Plan: # lung adenocarcinoma with mets - s/p LN bx, send for genetic profile - further treatment per Oncology * getting palliative radiation currently # acute hypoxic resp failure, multifactorial: d/t inflammation from bronch, mass , PE, pna * improving with steroids, radiation, antibiotics and treatment of PE # LLL subsegmental PE - bilat LE DVTs, distal to knee - cont lovenox # R heart strain - multifactorial # pericardial effusion, likely malignant: no evidence of tamponade # postobstructive pna - GS with GPC pairs - cont invanz D#8 * switched to oral Augmentin tomorrow. * May extend to 14 day course since she still has significant rhonchi and obstruction is most likely still present # chest pain/ECG changes/indet trop - likely d/t PE, doubt ACS - hold asa now that on AC # mild thrombocytopenia: resolved # FCFT # dispo - will probably remain inpatient until the end of radiation and hopefully oxygen requirements will improve Subjective: no new complaints Objective: Vital Signs Temp Pulse Resp BP Pulse Ox 36.9 C 101 H 18 135/93 H 94 02/12/17 07:28 02/12/17 07:28 02/12/17 07:28 02/12/17 07:28 02/12/17 07:28 Microbiology 02/06/17 15:10 Mycobacterial Smear (OLIVA) - Final Lung Right Upper Lobe - Bronchial Washings Laboratory Results 02/12/17 03:42 02/12/17 03:42 02/11/17 02/12/17 02/13/17 05:59 05:59 05:59 Intake Total 2555 1840 Balance 2555 1840 PT 15.5 SEC (12.0-15.0) H 02/06/17 02:30 INR 1.23 (0.83-1.16) H 02/06/17 02:30 tele personally viewed interpreted normal sinus rhythm discussed with Oncology - Physical Exam Constitutional: no apparent distress, appears nourished, not in pain Eyes: anicteric sclera, EOMI Ears, Nose, Mouth, Throat: moist mucous membranes, hearing normal, ears appear normal Cardiovascular: regular rate and rhythym, no murmur, rub, or gallop Respiratory: no respiratory distress, inspiratory crackles ( right base) Gastrointestinal: normoactive bowel sounds, soft, non-tender abdomen, no palpable masses Skin: warm Neurologic: AAOx3 Psychiatric: interacting appropriately, not anxious, not encephalopathic, thought process linear ICD10 Worksheet Patient Problems: Problems Problem Status Onset Mass of upper lobe of right lung Acute Pulmonary embolism Acute Appendicitis Acute
--- NOTE | 2017-02-12 12:08 | SOAPPROG ---
SOAP Progress Note Assessment/Plan: Assessment/Plan: 56 yo woman w metastatic adenoCa of RML w obstruction causing hypoxemia 1. Stage IV adenoca of lung - nonsmoker, lymph node bx shows adeno; molecular studies/PDL1 pending pending CT abd/pelvis demonstrates possible liver mets and 2 bone lesions in R pelvis; MRI brain negative undergoing XRT for obstructive presentation which started weekend of 02/07/17 will need palliative chemo vs targeted therapy for systemic treatment once she completes XRT ok to d/c w outpt follow up when O2 sats better 2. Hypoxemia - 2/2 adenoca + postobx PNA O2 requirements dropping w XRT on IV abx and steroids 3. Small volume PE/DVT - on lovenox 4. Bone lesions - no pain currently; discuss bisphosphonate as outpt 02/11/17 14:27 02/12/17 12:06 Subjective: reports breathing better no new jaw pain denies other issues Objective: Vital Signs Temp Pulse Resp BP Pulse Ox 36.8 C 106 H 18 147/102 H 92 02/12/17 11:20 02/12/17 11:20 02/12/17 11:20 02/12/17 11:20 02/12/17 11:20 Microbiology 02/06/17 15:10 Mycobacterial Smear (OLIVA) - Final Lung Right Upper Lobe - Bronchial Washings Laboratory Results 02/12/17 03:42 02/12/17 03:42 02/11/17 02/12/17 02/13/17 05:59 05:59 05:59 Intake Total 2555 1840 400 Balance 2555 1840 400 PT 15.5 SEC (12.0-15.0) H 02/06/17 02:30 INR 1.23 (0.83-1.16) H 02/06/17 02:30 Gen - NAD HEENT - anicteric CV - RRR Chest - crackles RML/RLL Abd - soft, nontender LE - no sig edema ICD10 Worksheet Patient Problems: Problems Problem Status Onset Mass of upper lobe of right lung Acute Pulmonary embolism Acute Appendicitis Acute
[2017-02-12] MEDS: AMOXICILLIN/CLAVULANATE POT 875/125 MG TAB PO SCH (21:50)
[2017-02-12] MEDS: CYCLOBENZAPRINE 10 MG TAB PO SCH (21:51)
[2017-02-13] MEDS: LEVALBUTEROL 1.25 MG/3 ML DEYVIAL IH SCH ×5 (05:34→23:22)
[2017-02-13] MEDS: guaiFENesin 600 MG TAB.ER PO SCH ×2 (08:56→21:26)
[2017-02-13] MEDS: predniSONE 20 MG TAB PO SCH (08:56)
[2017-02-13] MEDS: ACETAMINOPHEN 325 MG TAB PO PRN ×2 (08:56→21:31)
[2017-02-13] MEDS: AMOXICILLIN/CLAVULANATE POT 875/125 MG TAB PO SCH ×2 (08:57→21:26)
[2017-02-13] MEDS: ENOXAPARIN 80 MG/0.8 ML SYR SC SCH ×2 (08:57→21:27)
--- NOTE | 2017-02-13 09:24 | HOSPPROG ---
Hospitalist Progress Note Assessment/Plan: # lung adenocarcinoma with mets - s/p LN bx, send for genetic profile - further treatment per Oncology * getting palliative radiation currently # acute hypoxic resp failure, multifactorial: d/t inflammation from bronch, mass , PE, pna * improving with steroids, radiation, antibiotics and treatment of PE * getting to levels where she may be able to be discharged # LLL subsegmental PE - bilat LE DVTs, distal to knee - cont lovenox * will discuss with Oncology outpatient regimen whether continuing Lovenox, Coumadin or oral anticoagulant # R heart strain - multifactorial # pericardial effusion, likely malignant: no evidence of tamponade # postobstructive pna - GS with GPC pairs * switched to oral Augmentin * May extend to 14 day course since she still has significant rhonchi and obstruction is most likely still present * recheck chest x-ray today # chest pain/ECG changes/indet trop - likely d/t PE, doubt ACS - hold asa now that on AC # mild thrombocytopenia: resolved # FCFT # dispo - oxygen requirements are improving. Considering discharge after radiation tomorrow or Friday morning. Will discuss with Oncology Subjective: feeling better Objective: Vital Signs Temp Pulse Resp BP Pulse Ox 36.7 C 99 18 134/90 H 90 L 02/13/17 07:37 02/13/17 07:37 02/13/17 07:37 02/13/17 07:37 02/13/17 07:37 Laboratory Results 02/12/17 03:42 02/12/17 03:42 02/12/17 02/13/17 02/14/17 05:59 05:59 05:59 Intake Total 1840 1290 500 Balance 1840 1290 500 PT 15.5 SEC (12.0-15.0) H 02/06/17 02:30 INR 1.23 (0.83-1.16) H 02/06/17 02:30 - Physical Exam Constitutional: no apparent distress, appears nourished, not in pain Eyes: anicteric sclera, EOMI Ears, Nose, Mouth, Throat: moist mucous membranes, hearing normal, ears appear normal Cardiovascular: regular rate and rhythym, no murmur, rub, or gallop Respiratory: no respiratory distress, no rales or rhonchi, inspiratory crackles ( improving) Gastrointestinal: normoactive bowel sounds, soft, non-tender abdomen, no palpable masses Skin: warm Neurologic: AAOx3 Psychiatric: interacting appropriately, not anxious, not encephalopathic, thought process linear ICD10 Worksheet Patient Problems: Problems Problem Status Onset Mass of upper lobe of right lung Acute Pulmonary embolism Acute Appendicitis Acute
--- NOTE | 2017-02-13 12:25 | SOAPPROG ---
SOAP Progress Note Assessment/Plan: Assessment/Plan: 56 yo woman w metastatic adenoCa of RML w obstruction causing hypoxemia 1. Stage IV adenoca of lung - nonsmoker, lymph node bx shows adeno; molecular studies/PDL1 pending pending CT abd/pelvis demonstrates possible liver mets and 2 bone lesions in R pelvis; MRI brain negative undergoing XRT for obstructive presentation which started weekend of 02/07/17 will need palliative chemo vs targeted therapy for systemic treatment once she completes XRT ok to d/c w outpt follow up when O2 sats better, anticipate tomorrow or Friday Will follow up 2. Hypoxemia - 2/2 adenoca + postobx PNA O2 requirements dropping w XRT on IV abx and steroids 3. Small volume PE/DVT - on lovenox ok to transition to coumadin in anticipation of discharge 4. Bone lesions - no pain currently; discuss bisphosphonate as outpt 02/11/17 14:27 02/12/17 12:06 02/13/17 12:17 Subjective: No acute events Reports breathing better Objective: Vital Signs Temp Pulse Resp BP Pulse Ox 36.7 C 99 18 134/90 H 90 L 02/13/17 07:37 02/13/17 07:37 02/13/17 07:37 02/13/17 07:37 02/13/17 07:37 Laboratory Results 02/12/17 03:42 02/12/17 03:42 02/12/17 02/13/17 02/14/17 05:59 05:59 05:59 Intake Total 1840 1290 500 Balance 1840 1290 500 PT 15.5 SEC (12.0-15.0) H 02/06/17 02:30 INR 1.23 (0.83-1.16) H 02/06/17 02:30 Gen - NAD, up and alert HEENT - anicteric CV - RRR Chest - CTAB Abd - soft, NT Ext - no sig edema Neuro - nonfocal ICD10 Worksheet Patient Problems: Problems Problem Status Onset Mass of upper lobe of right lung Acute Pulmonary embolism Acute Appendicitis Acute
[2017-02-14] MEDS: CYCLOBENZAPRINE 10 MG TAB PO SCH (03:21)
[2017-02-14] MEDS: LEVALBUTEROL 1.25 MG/3 ML DEYVIAL IH SCH ×3 (05:02→14:01)
[2017-02-14 07:26] VITALS: TEMP 98; O2SAT 90
[2017-02-14] MEDS: ENOXAPARIN 80 MG/0.8 ML SYR SC SCH (08:26)
[2017-02-14] MEDS: ACETAMINOPHEN 325 MG TAB PO PRN (08:27)
[2017-02-14] MEDS: AMOXICILLIN/CLAVULANATE POT 875/125 MG TAB PO SCH (08:27)
[2017-02-14] MEDS: predniSONE 20 MG TAB PO SCH (08:27)
[2017-02-14] MEDS: guaiFENesin 600 MG TAB.ER PO SCH (08:27)
[2017-02-14] MEDS ORDERED: WARFARIN SODIUM 5 MG TAB PO ONE ×2 (09:20→15:00)
[2017-02-14 11:22] VITALS: BP 144/96; PULSE 100; RESP 15
--- NOTE | 2017-02-14 14:13 | SOAPPROG ---
SOAP Progress Note Assessment/Plan: Assessment: 1.) NSCLC presenting with post-obstructive process. Plans for discharge today noted. She has 4 more XRT. Will arrange follow up at our [facility] office to follow up with Dr. Eden Bhagat. D/W patient and her family. Plan: See above. Discharge today. 02/14/17 14:10 Subjective: Feeling stronger and feels well enough for discharge. Objective: Ita looks well. Her family is at the bedside. Exam deferred. See attached labs here: Vital Signs Temp Pulse Resp BP Pulse Ox 36.6 C 100 15 144/96 H 90 L 02/14/17 11:20 02/14/17 11:20 02/14/17 11:20 02/14/17 11:20 02/14/17 11:20 Laboratory Results 02/12/17 03:42 02/12/17 03:42 02/13/17 02/14/17 02/15/17 05:59 05:59 05:59 Intake Total 1290 1730 Balance 1290 1730 PT 15.5 SEC (12.0-15.0) H 02/06/17 02:30 INR 1.23 (0.83-1.16) H 02/06/17 02:30 ICD10 Worksheet Patient Problems: Problems Problem Status Onset Mass of upper lobe of right lung Acute Pulmonary embolism Acute Appendicitis Acute
[2017-02-14] MEDS ORDERED: WARFARIN SODIUM 7.5 MG TAB PO ONE (15:00)
--- NOTE | 2017-02-14 16:37 | GDS ---
[f rep st] DISCHARGE SUMMARY DISCHARGE DIAGNOSES: 1. New diagnosis of metastatic non-small cell lung cancer. 2. Right upper lobe obstruction. 3. Postobstructive pneumonia. 4. Pulmonary embolism. 5. Pulmonary hypertension. 6. Acute hypoxic respiratory failure. 7. Mild pericardial effusion. HISTORY: This is a 56-year-old female who presented with acute hypoxic respiratory failure and hemo ptysis. HOSPITAL COURSE: The patient was admitted initially on CT scan of her chest, which showed subsegmen fidelia pulmonary embolism, suspicious for suprahilar mass, with postobstructive pneumonia. She was sta rted on empiric antibiotics. She had a bronchoscopy and biopsy which revealed adenocarcinoma. She was also diagnosed with a subsegmental PE and was started on anticoagulation. Over the last several days, she has been getting radiation as well as prednisone therapy. Her oxygen requirement has imp roved to 4 L. The patient has 5 more days of radiation therapy. Her oxygen requirement has improved and she is am bulatory; and thus, we will be discharging her home. She will continue with Lovenox bridging as wel l as Coumadin. We will also continue prednisone therapy through radiation until she is able to foll ow up with Oncology. I have elected to do a longer course of antibiotics because of the postobstruc tive nature of her pneumonia. She continues to have some rhonchi and sputum production. We will gi ve her 5 more days of Augmentin, which will complete a 2-week course. DISPOSITION: Home. DISCHARGE MEDICATIONS: Include oxycodone, albuterol, Augmentin, Lovenox 120 mg daily, prednisone 40 mg, and warfarin 5 mg daily. FOLLOWUP INSTRUCTIONS: She was instructed to follow up with Oncology in 3 days for PT/INR as well a s followup. She will follow up with radiation therapy with radiation starting Friday as well. TIME SPENT: Greater than 30 minutes was spent on discharge. /[id number]/MODL
[2017-02-15] MEDS ORDERED: WARFARIN SODIUM 5 MG TAB PO SCH (16:00)
== END 2017-02-14 14:59 | disposition home or self-care (01) | DRG 166 ==
LOC: F2W 22:27
PROVIDERS: ADMIT Internal Medicine; ATTEND Internal Medicine
PROC: 0BB48ZX Excision of Right Upper Lobe Bronchus, Via Natural or Artificial Opening Endoscopic, Diagnostic (ICD-10-PCS; principal; 2017-02-06 14:00)
PROC: 0BBC8ZX Excision of Right Upper Lung Lobe, Via Natural or Artificial Opening Endoscopic, Diagnostic (ICD-10-PCS; principal; 2017-02-06 14:00)
PROC: 07B20ZX Excision of Left Neck Lymphatic, Open Approach, Diagnostic (ICD-10-PCS; 2017-02-08)
DX: C34.11 Malignant neoplasm of upper lobe, right bronchus or lung (principal); J17 Pneumonia in diseases classified elsewhere; J96.01 Acute respiratory failure with hypoxia; I26.99 Other pulmonary embolism without acute cor pulmonale; I82.4Z1 Acute embolism and thrombosis of unspecified deep veins of right distal lower extremity; I82.4Z2 Acute embolism and thrombosis of unspecified deep veins of left distal lower extremity; C77.0 Secondary and unspecified malignant neoplasm of lymph nodes of head, face and neck; C79.51 Secondary malignant neoplasm of bone; I27.2 Other secondary pulmonary hypertension; I31.3 Pericardial effusion (noninflammatory)
CPT/HCPCS: 82947-QW; 85520-90; 96374; A9585; J1335; J1644; J1650; J2250; J2704; J3010; Q9967

== ENCOUNTER 2017-02-27 10:50 | Emergency (ER) | payer OTHER ==
[2017-02-27 10:55] VITALS: O2SAT 94
--- NOTE | 2017-02-27 11:05 | CPEKG ---
Heart Rate: 102 RR Interval: 588 P-R Interval: 144 QRSD Interval: 82 QT Interval: 324 QTC Interval: 423 P [place]: 46 QRS [place]: 53 T Wave [place]: -11 EKG Severity - BORDERLINE ECG - EKG Impression: SINUS TACHYCARDIA EKG Impression: BORDERLINE T ABNORMALITIES, DIFFUSE LEADS EKG Impression: Unchanged from prior EKG Electronically Signed By: Melo Caldwell 27-Feb-2017 12:02:01
--- NOTE | 2017-02-27 11:14 | EDPHY ---
H & P Stated Complaint: Tightness in epigastric area, radiates to right chest. Time Seen by Provider: 02/27/17 11:05 HPI/ROS: CHIEF COMPLAINT: Substernal chest discomfort HISTORY OF PRESENT ILLNESS: The patient presents to the ED with a 1 day history of intermittent substernal chest discomfort. The patient reports her symptoms began about 5 o'clock this morning. She has had stuttering epigastric and substernal chest discomfort. The patient did have the symptoms began after a severe episode of coughing. The patient reports she has been recently diagnosed with stage IV lung cancer, postobstructive pneumonia and pulmonary embolism. She is currently receiving radiation therapy. The patient reports that her symptoms are somewhat worsened with swallowing. She denies additional complaints. Patient reports that she has been compliant with her twice daily Lovenox injections. The patient denies melena. She denies additional complaints. She currently is asymptomatic. REVIEW OF SYSTEMS: A comprehensive 10 point review of systems is otherwise negative aside from elements mentioned in the history of present illness. Source: Patient Exam Limitations: No limitations - Personal History Current Tetanus Diphtheria and Acellular Pertussis (TDAP): Yes Tetanus Vaccine Date: 2010 - Medical/Surgical History Hx Asthma: No Hx Chronic Respiratory Disease: Yes Hx Diabetes: No Hx Cardiac Disease: No Hx Renal Disease: No Hx Cirrhosis: No Hx Alcoholism: No Hx HIV/AIDS: No Hx Splenectomy or Spleen Trauma: No Other PMH: hysterectomy/appy/achilles tendon rupture, PNA. Lung CA. - Social History Smoking Status: Never smoked - Physical Exam Exam: General Appearance: Alert, no distress Eyes: Pupils equal and round no pallor or injection ENT, Mouth: Mucous membranes moist Respiratory: There are no retractions, lungs are clear to auscultation Cardiovascular: Regular rate and rhythm Gastrointestinal: Abdomen is soft and nontender, no masses, bowel sounds normal Neurological: A&O, normal motor function, normal sensory exam, normal cranial nerves Skin: Warm and dry, no rashes Musculoskeletal: Neck is supple nontender Extremities: symmetrical, full range of motion Constitutional: Initial Vital Signs Temperature (C) 36.8 C 02/27/17 10:50 Heart Rate 109 H 02/27/17 10:50 Respiratory Rate 18 02/27/17 10:50 Blood Pressure 133/90 H 02/27/17 10:50 O2 Sat (%) 94 02/27/17 10:50 O2 Delivery Mode Nasal Cannula O2 (L/minute) 1.5 Allergies/Adverse Reactions: povidone-iodine [From Betadine] Allergy (Intermediate, Verified 02/05/17 18:07) Rash soap [From Betadine] Allergy (Verified 01/29/17 07:54) Home Medications: Medication Instructions Recorded Cyclobenzaprine [Flexeril 10 MG 5 mg PO HS 02/05/17 (*)] Ibuprofen [Advil] 600 mg PO HS 02/05/17 Albuterol [Ventolin Hfa Inhaler] 1 - 2 puffs IH Q4 PRN #1 mdi 02/14/17 Amoxicillin/Clavulanate Pot 875 mg PO BID #10 tab 02/14/17 [Augmentin 875 MG TAB (*)] Enoxaparin [Lovenox 120 MG (*)] 120 mg SQ HS #7 ml 02/14/17 Warfarin Sodium [Coumadin 5MG (*)] 5 mg PO DAILY AT 4PM #30 tab 02/14/17 guaiFENesin [Mucinex 600 MG (*)] 1,200 mg PO BID #60 tab.er 02/14/17 oxyCODONE IR [Oxycodone Ir (*)] 5 - 10 mg PO Q3HRS PRN #30 tab 02/14/17 predniSONE 40 mg PO DAILY #20 tablet 02/14/17 Omeprazole 40 mg PO DAILY #30 capsule. 02/27/17 Medical Decision Making - Diagnostics EKG Interpretation: EKG: Complete interpretation has been separately recorded in the [employer] archive. Summary impression: Sinus tachycardia, rate 102, nonspecific ST T wave changes noted, unchanged from prior EKG dated 02/05/2017. Imaging: Chest, PA and Lateral History: Follow-up pneumonia, dyspnea, right lung cancer history Comparison: Portable exam 02/13/2017, PA and lateral chest February 09, 2017 Findings: Although the right upper lobe is becoming better aerated, there is now visualization of a previously obscured large round right upper lobe mass measuring about 3.9 cm in diameter. Remaining interstitial disease throughout the right lung may represent lymphangitic spread of neoplasm. There is no pleural effusion. The left lung remains normally aerated except for a thin plate of atelectasis at the lower lateral left base. Impression: 1. The chest x-ray is now consistent with a right upper lobe mass. 2. Improving right upper lobe pneumonia. Please see above. ED Course/Re-evaluation: The patient presents to the ED with a 1 day history of intermittent substernal chest discomfort which is worsened with swallowing and movement. The patient did receive a GI cocktail in the emergency department with some improvement of her symptoms. The patient's chest x-ray demonstrates no significant pneumonia or pneumothorax or pleural effusion. The patient's EKG demonstrates no dynamic changes and her troponin is normal. She currently is anticoagulated with Lovenox. The patient did have fairly significant improvement of her symptoms with a GI cocktail. I do feel that she likely is experiencing an esophageal source of pain secondary to her recent steroids and radiation therapy. I will recommend that the patient begin a proton pump inhibitor and use Maalox as needed. She is scheduled to see her oncologist tomorrow for follow-up. The patient does understand that we cannot fully exclude underlying acute coronary syndrome and that she should return to the ED immediately for worsening symptoms, exertional symptoms or other concerns. Differential Diagnosis: Differential diagnosis considered includes esophageal spasm, acute coronary syndrome, pulmonary infarct, pleural effusion, pneumothorax - Data Points Laboratory Results: Laboratory Results 02/27/17 11:00 02/27/17 11:00 02/27/17 02/27/17 02/27/17 11:02 11:00 11:00 WBC 12.95 10^3/uL H 10^3/uL (3.80-9.50) RBC 5.11 10^6/uL 10^6/uL (4.18-5.33) Hgb 14.4 g/dL g/dL (12.6-16.3) POC Hgb 15.0 gm/dL gm/dL (12.3-15.9) Hct 43.2 % % (38.0-47.0) POC Hct 44 % % (35.5-47.5) MCV 84.5 fL fL (81.5-99.8) MCH 28.2 pg pg (27.9-34.1) MCHC 33.3 g/dL g/dL (32.4-36.7) RDW 14.7 % % (11.5-15.2) Plt Count 241 10^3/uL 10^3/uL (150-400) MPV 9.5 fL fL (8.7-11.7) Neut % (Auto) 85.7 % H % (39.3-74.2) Lymph % (Auto) 3.8 % L % (15.0-45.0) [place] % (Auto) 8.3 % % (4.5-13.0) Eos % (Auto) 0.6 % % (0.6-7.6) Baso % (Auto) 0.4 % % (0.3-1.7) Nucleat RBC Rel Count 0.0 % % (0.0-0.2) Absolute Neuts (auto) 11.11 10^3/uL H 10^3/uL (1.70-6.50) Absolute Lymphs (auto) 0.49 10^3/uL L 10^3/uL (1.00-3.00) Absolute Monos (auto) 1.07 10^3/uL H 10^3/uL (0.30-0.80) Absolute Eos (auto) 0.08 10^3/uL 10^3/uL (0.03-0.40) Absolute Basos (auto) 0.05 10^3/uL 10^3/uL (0.02-0.10) Absolute Nucleated RBC 0.00 10^3/uL 10^3/uL (0-0.01) Immature Gran % 1.2 % H % (0.0-1.1) Immature Gran # 0.15 10^3/uL H 10^3/uL (0.00-0.10) PT INR POC Sodium 138 mEq/L mEq/L (134-144) Sodium 134 mEq/L mEq/L (134-144) POC Potassium 3.7 mEq/L mEq/L (3.3-5.0) Potassium 3.8 mEq/L mEq/L (3.5-5.2) POC Chloride 100 mEq/L mEq/L (96-108) Chloride 100 mEq/L mEq/L (97-110) Carbon Dioxide 23 mEq/l mEq/l (22-31) Anion Gap 11 mEq/L mEq/L (8-16) POC BUN 14 mg/dL mg/dL (7-23) BUN 15 mg/dL mg/dL (7-23) Creatinine 0.5 mg/dL L mg/dL (0.6-1.0) POC Creatinine 0.4 mg/dL L mg/dL (0.6-1.2) Estimated GFR > 60 Glucose 106 mg/dL H mg/dL (70-100) POC Glucose 108 mg/dL H mg/dL (70-100) Calcium 9.5 mg/dL mg/dL (8.5-10.4) Troponin I 0.014 ng/mL ng/mL (0-0.034) 02/27/17 11:00 WBC RBC Hgb POC Hgb Hct POC Hct MCV MCH MCHC RDW Plt Count MPV Neut % (Auto) Lymph % (Auto) [place] % (Auto) Eos % (Auto) Baso % (Auto) Nucleat RBC Rel Count Absolute Neuts (auto) Absolute Lymphs (auto) Absolute Monos (auto) Absolute Eos (auto) Absolute Basos (auto) Absolute Nucleated RBC Immature Gran % Immature Gran # PT 13.3 SEC SEC (12.0-15.0) INR 1.02 (0.83-1.16) POC Sodium Sodium POC Potassium Potassium POC Chloride Chloride Carbon Dioxide Anion Gap POC BUN BUN Creatinine POC Creatinine Estimated GFR Glucose POC Glucose Calcium Troponin I Medications Given: Discontinued Medications Al Hydroxide/Mg Hydroxide (Maalox Susp) 30 ml PO ONCE ONE Stop: 02/27/17 11:35 Last Admin: 02/27/17 12:07 Dose: 30 ml Hyoscyamine Sulfate (Levsin, Hyomax-Sl) 0.25 mg PO ONCE ONE Stop: 02/27/17 11:35 Last Admin: 02/27/17 12:07 Dose: 0.25 mg Lidocaine (Lidocaine 2% Viscous) 15 ml PO ONCE ONE Stop: 02/27/17 11:35 Last Admin: 02/27/17 12:07 Dose: 15 ml Point of Care Test Results: 02/27/17 11:02 POC Sodium 138 POC Potassium 3.7 POC Chloride 100 POC BUN 14 POC Creatinine 0.4 L POC Glucose 108 H Departure - Departure Disposition: Home, Routine, Self-Care Clinical Impression: Chest pain Condition: Good Instructions: Chest Pain (ED) Additional Instructions: 1. Based upon the testing done in the Emergency Department today we see no evidence of a heart attack. 2. We are unable to fully exclude coronary artery disease based upon the testing available in the Emergency Department. 3. For this reason, we would like you to be seen by cardiology for consideration of additional testing within the next 3 days. The you have been referred to the mds manager at [facility] for further evaluation of any ongoing symptoms. 4. Please contact the mds manager you have been referred to schedule this appointment as soon as possible. Their offices are typically open from 8:30am- 5pm M-F. 5. Please return to the Emergency Department immediately for any recurrent chest pain, difficulty breathing or other concerns. 6. Please begin Prilosec as prescribed for possible esophageal spasm in irritation. You may also use Maalox as needed. Referrals: Alexia Reddy MD [Primary Care Provider] - As per Instructions Macho Luis MD [Medical Doctor] - As per Instructions
[2017-02-27 11:20] LABS: % IMMATURE GRANULYOCYTES 1.2 % (0.0-1.1); ABSOLUTE IMMATURE GRANULOCYTES 0.15 10^3/uL (0.00-0.10); ADD DIFF? NO; ADD MORPH? NO; ADD SCAN? NO; ATYPICAL LYMPHOCYTE FLAG 0 (0-99); FRAGMENT RBC FLAG 0 (0-99); HEMATOCRIT 43.2 % (38.0-47.0); HEMOGLOBIN 14.4 g/dL (12.6-16.3); LEFT SHIFT FLG 0 (0-99); LIPEMIA HEMOLYSIS FLAG 80 (0-99); MEAN CELL HEMOGLOBIN 28.2 pg (27.9-34.1); MEAN CELL HEMOGLOBIN CONCENTR. 33.3 g/dL (32.4-36.7); MEAN CELL VOLUME 84.5 fL (81.5-99.8); MEAN PLATELET VOLUME 9.5 fL (8.7-11.7); PLATELET CLUMPS FLAG 0 (0-99); PLATELET COUNT 241 10^3/uL (150-400); RED BLOOD CELL COUNT 5.11 10^6/uL (4.18-5.33); RED CELL DISTRIBUTION WIDTH 14.7 % (11.5-15.2)
[2017-02-27 11:31] LABS: INR 1.02 (0.83-1.16); PROTIME(PATIENT) 13.3 SEC (12.0-15.0)
[2017-02-27 11:33] LABS: ANION GAP 11 mEq/L (8-16); CALCIUM 9.5 mg/dL (8.5-10.4); CARBON DIOXIDE 23 mEq/l (22-31); CHLORIDE 100 mEq/L (97-110); CREATININE 0.5 mg/dL (0.6-1.0); GLOMERULAR FILTRATION RATE > 60; GLUCOSE 106 mg/dL (70-100); POTASSIUM 3.8 mEq/L (3.5-5.2); SODIUM 134 mEq/L (134-144)
[2017-02-27] MEDS ORDERED: LIDOCAINE 2% VISCOUS 15 ML UDCUP PO ONE (11:34)
[2017-02-27] MEDS ORDERED: MAG HYDROX/AL HYDROX/SIMETH 30 ML UDCUP PO ONE (11:34)
[2017-02-27] MEDS ORDERED: HYOSCYAMINE SULFATE 0.125 MG TAB PO ONE (11:34)
[2017-02-27 11:45] LABS: TROPONIN I 0.014 ng/mL (0-0.034)
[2017-02-27 13:40] VITALS: BP 132/90; PULSE 100; RESP 16; TEMP 98.4
== END 2017-02-27 13:40 | disposition home or self-care (01) ==
DX: R07.2 Precordial pain (principal); Z79.01 Long term (current) use of anticoagulants; Z85.118 Personal history of other malignant neoplasm of bronchus and lung
CPT/HCPCS: 82947-QW

== ENCOUNTER → 2017-10-31 | Outpatient (CLI) | payer OTHER | LOC: FIMAGING 08:56 | PROVIDERS: ATTEND Internal Medicine Hematology & Oncology | DX: J98.4 Other disorders of lung (principal); R50.9 Fever, unspecified; D72.829 Elevated white blood cell count, unspecified; Z85.118 Personal history of other malignant neoplasm of bronchus and lung ==

== ENCOUNTER 2017-11-14 08:11 | Day surgery (SDC) | payer OTHER ==
--- NOTE | 2017-11-14 07:21 | PDHPUP ---
History & Physical Update H&P update statement: This history and physical update is based on an assessment of the patient which was completed after admission or registration (within 24 hours), but prior to the surgery/procedure. updated
[2017-11-14] MEDS ORDERED: ceFAZolin 2 GM/DEXTROSE 100 ML IV ONE (08:22)
[2017-11-14] MEDS ORDERED: LIDOCAINE 1% 2 ML INJ ID PRN (08:23)
[2017-11-14] MEDS ORDERED: LR 1,000 ML IV ONE (08:23)
[2017-11-14 08:50] VITALS: PULSE 101
[2017-11-14] MEDS ORDERED: ceFAZolin 2 GM/SWFI 2 GM/20 ML SYR IVP ONE (09:00)
[2017-11-14] MEDS ORDERED: BUPIVACAINE 0.5% 30 ML SDV ONE ×2 (09:17→10:04)
[2017-11-14] MEDS ORDERED: BACITRACIN ZINC 14.2 GM OINTTUBE TP ONE ×2 (09:17→10:05)
[2017-11-14] MEDS ORDERED: SODIUM BICARBONATE 10 MEQ/10 ML SYR IVP ONE ×2 (09:17→10:06)
[2017-11-14] MEDS ORDERED: LIDOCAINE 1% 300 MG/30 ML SDV ONE (09:18)
[2017-11-14 09:43] LABS: INR 1.16 (0.83-1.16)
--- NOTE | 2017-11-14 10:08 | PDANEPAE ---
ANE History of Present Illness port placement, metastasis to jaw, hip, liver, ileum ANE Past Medical History - Pulmonary History Hx COPD: No Hx Asthma/Reactive Airway Disease: No Hx Recent Upper Respiratory Infection: No Hx Oxygen in Use at Home: Yes O2 in Use at Home (L/minute): 1 CONT Hx Sleep Apnea: No Sleep Apnea Screening Result - Last Documented: Negative Pulmonary History Comment: PE 01/2017. PNEUMONIA 10/2017 RESIDUAL SOB PLACED ON OXYGEN - Neurologic History Hx Cerebrovascular Accident: No Hx Seizures: No Hx Dementia: No - Endocrine History Hx Diabetes: No Obesity: mild - Renal History Hx Renal Disorders: No - Liver History Hx Hepatic Disorders: No - Neurological & Psychiatric Hx Hx Neurological and Psychiatric Disorders: No - Cancer History Hx Cancer: Yes Cancer History Comment: METS RT UPPER LOBE AND. JAW BONE LIMITED ABILITY TO OPEN - Congenital Disorder History Hx Congenital Disorders: No - GI History GERD: no Hx Gastrointestinal Disorders: No - Other Health History Other Health History: CHEMO ORAL RX. RADIATION LAST 08/2017. DVT 01/2017 RLE - Chronic Pain History Chronic Pain: No - Surgical History Prior Surgeries: LT SUPRA CLAVICULAR BX. APPENDECTOMY 2013. PARTIAL HYSTERECTOMY. LT ACHILLES TENDON REPAIR ANE Review of Systems Review of Systems: - Exercise capacity METS (RN): 3 METS ANE Patient History - Allergies Allergies/Adverse Reactions: povidone-iodine [From Betadine] Allergy (Intermediate, Verified 02/05/17 18:07) Rash soap [From Betadine] Allergy (Verified 01/29/17 07:54) - Home Medications Home Medications: Ibuprofen [Advil] 600 mg PO HS 02/05/17 [Last Taken 11/12/17] Afatinib DAILY 11/13/17 [Last Taken 11/13/17] Enoxaparin [Lovenox 120 MG (*)] 120 mg SQ BID 11/13/17 [Last Taken 11/13/17 08: 00] Herbal Drugs DAILY 11/13/17 [Last Taken 11/12/17] Tylenol Extra Strength PRN 11/13/17 [Last Taken 11/13/17] Enoxaparin Sodium 70 mg SQ BID 11/14/17 [Last Taken 11/13/17 08:00] - NPO status NPO Since - Liquids (Date): 11/14/17 NPO Since - Liquids (Time): 06:00 NPO Since - Solids (Date): 11/13/17 NPO Since - Solids (Time): 22:00 - Anes Hx Anes Hx: no prior problems Hx Anesthesia Complications (with details): very limited mouth opening post radiation, fx of mandible - Smoking Hx Smoking Status: Never smoked - Alcohol Use Alcohol Use: None - Family Anes Hx Family Anes Hx: none ANE Labs/Vital Signs - Vital Signs Blood Pressure: 115/69 Heart Rate: 101 Respiratory Rate: 20 O2 Sat (%): 91 Height: 157.48 cm Weight: 72.575 kg ANE Physical Exam - Airway Neck exam: FROM Mallampati Score: Class 3 Mouth exam: small mouth opening (severely limited mouth opening) ANE Anesthesia Plan Anesthesia Plan: GA with mask (discussed possibility of tracheostomy, if airway control is required.)
[2017-11-14] MEDS ORDERED: MIDAZOLAM 2 MG/2 ML VIAL ONE (10:11)
[2017-11-14] MEDS ORDERED: MIDAZOLAM 2 MG/2 ML VIAL IVP ONE ×2 (10:12→10:23)
[2017-11-14] MEDS ORDERED: PROPOFOL 200 MG/20 ML VIAL ONE ×2 (10:18→10:57)
--- NOTE | 2017-11-14 11:36 | POSTOPPROG ---
Post Op Note Date of Operation: 11/14/17 Surgeon: Aravind Farias Anesthesiologist: steff Anesthesia: IV Sedation Pre-op Diagnosis: lung cancer Post-op Diagnosis: same Indication: chemo access Procedure: left subclavian port with flouro/ right femoral node excision Findings: good position and flow/ 2.5 cm hard right femoral node Inf/Abcess present in the surg proc area at time of surgery?: No Depth: Deep Incisional (Fascial) EBL: Minimal Complications: 0 Specimen(s): rt femoral node
[2017-11-14] MEDS ORDERED: fentaNYL 100 MCG/2 ML INJ IVP PRN (12:03)
[2017-11-14] MEDS ORDERED: NALOXONE HCL 0.4 MG/ML INJ IVP PRN (12:03)
[2017-11-14 13:24] VITALS: TEMP 98.4; O2SAT 93
[2017-11-14 13:27] VITALS: BP 115/74; RESP 29
--- NOTE | 2017-11-14 14:07 | POSTANESTH ---
Post Anesthetic Evaluation Cardiovascular Status: Normal, Stable Respiratory Status: Similar to Pre-op Cond. Level of Consciousness/Mental Status: Can Participate in Eval Pain Control: Adequate, Prn Tx Ordered Nausea/Vomiting Control: Adequate, Prn Tx Ordered Complications Possibly Related to Anesthesia: None Noted
== END 2017-11-14 13:25 | disposition home or self-care (01) ==
LOC: FSGY 08:11
PROVIDERS: ATTEND Surgery
PROC: 02HV33Z Insertion of Infusion Device into Superior Vena Cava, Percutaneous Approach (ICD-10-PCS; principal; 2017-11-14 10:00)
PROC: 0JH60XZ Insertion of Tunneled Vascular Access Device into Chest Subcutaneous Tissue and Fascia, Open Approach (ICD-10-PCS; principal; 2017-11-14 10:00)
PROC: 07BF0ZX Excision of Right Lower Extremity Lymphatic, Open Approach, Diagnostic (ICD-10-PCS; 2017-11-14 10:00)
DX: C34.01 Malignant neoplasm of right main bronchus (principal); C77.9 Secondary and unspecified malignant neoplasm of lymph node, unspecified; Z79.01 Long term (current) use of anticoagulants
CPT/HCPCS: C1788; J0690; J1642; J2250; J2704

== ENCOUNTER → 2017-11-21 | Outpatient (CLI) | payer OTHER | LOC: FIMAGING 08:48 | PROVIDERS: ATTEND Nurse Practitioner | DX: C34.11 Malignant neoplasm of upper lobe, right bronchus or lung (principal); C79.51 Secondary malignant neoplasm of bone | CPT/HCPCS: 78306; A9503; J1642 ==

== ENCOUNTER → 2017-11-26 | Outpatient (CLI) | payer OTHER | LOC: FIMAGING 16:26 | PROVIDERS: ATTEND Internal Medicine Hematology & Oncology | DX: I74.3 Embolism and thrombosis of arteries of the lower extremities (principal); Z86.711 Personal history of pulmonary embolism; C34.90 Malignant neoplasm of unspecified part of unspecified bronchus or lung ==

== ENCOUNTER 2017-12-01 10:25 | Inpatient (IN) | payer OTHER ==
--- NOTE | 2017-12-01 10:54 | CPEKG ---
Heart Rate: 114 RR Interval: 526 P-R Interval: 136 QRSD Interval: 90 QT Interval: 312 QTC Interval: 430 P Lyons: 34 QRS Lyons: 120 T Wave Lyons: 9 EKG Severity - OTHERWISE NORMAL ECG - EKG Impression: SINUS TACHYCARDIA EKG Impression: RIGHT AXIS DEVIATION Electronically Signed By: Arcadio Maciel 01-Dec-2017 14:40:30
--- NOTE | 2017-12-01 11:08 | EDPHY ---
HPI/HX/ROS/PE/MDM Narrative: CHIEF COMPLAINT: Shortness of breath HPI: This patient is a 57 y/o female with history of non-small cell lung cancer arriving with her for evaluation of shortness of breath. She is followed by Dr. Eden Bhagat, oncologist, and is currently treated with oral chemotherapy. She has been increasingly short of breath for the last month but her symptoms have worsened significantly in the past week. She was evaluated last week by an MECHANICAL SPECIALIST at Dr. Bhagat's practice, and was scheduled for thoracentesis 12/03/16, two days from now. Over the weekend, she had increased difficulty of breathing and required increased oxygen at home to maintain adequate oxygen saturation (usually on 1L). This morning, she required 5L to maintain 90% oxygenation. She has also noted bilateral leg swelling which has worsened but changes daily. She has noted no relief with compression or elevation. She denies productive cough or fever, no vomiting, diarrhea, urinary complaints, or other associated symptoms. No recent trauma. REVIEW OF SYSTEMS: Aside from elements discussed in the HPI, a comprehensive 10-point review of systems was reviewed and is negative. PMH: 1. Non-small cell lung cancer 2. Pneumonia 3. Hysterectomy 4. Appendectomy SOCIAL HISTORY: at bedside. Lives in [place]. Nonsmoker. PHYSICAL EXAM: General:Patient is alert, appears uncomfortable. ENT:Eyes are normal to inspection. ENT inspection normal. Neck: Normal inspection. Full range of motion. Respiratory: Crackles in left lung, absent breath sounds on right. Port site on left, no signs of infection. Cardiovascular: Regular rate and rhythm. Strong peripheral pulses. Normal cap refill. Abdomen:The abdomen is nontender to palpation. There are no peritoneal signs. There are normal bowel sounds. Back: Normal to inspection. No tenderness to palpation. Skin: Normal color. No rash. Warm and dry. Extremities: 3+ pedal edema bilaterally. Full range of motion. Neuro: Oriented x3. Normal motor function. Normal sensory function. ED Course: 57 y/o female with history of non-small cell lung cancer presents with one month history of worsening shortness of breath. Exam reveals crackles in left lung, absent breath sounds in right. The patient has 3+ pedal edema bilaterally. Plan for EKG, chest x-ray, labs including CBC, BMP, Troponin, coag , BNP. Reviewed chest x-ray. Complete opacification of the right lung, possibly representing effusion, atelectasis, tumor. Plan to contact [facility] for recently completed CT chest results. 11:12 Consulted with Codie Walton, oncologist. CT two weeks ago shows large right sided pleural effusion. 12:21 Spoke with hospitalist service. Dr. Houston accepts admission to PCU. 13:[address] Hernandez, radiologist regarding urgent need for thoracentesis due to patient's worsening respiratory difficulty. Critical care time spent by me, Dr. Maciel, exclusively with this patient was 60 minutes, exclusive of PA time and exclusive of procedures. The organ system at risk was pulmonary and I ordered labs and imaging studies, consulted with oncology, hospitalists, radiology, and interventional radiology, and admitted the patient to the ICU to prevent worsening of the patients condition. MDM: This patient presents with worsening respiratory compromise in the setting of known lung CA. She will likely require urgent thoracentesis in the hospital today. At this time she is tolerating a NRB with some tachypnea. She will required admission to the ICU given tenuous respiratory status. Etiology of respiratory failure unclear, but likely related to malignant effusion, less likely PE, acute infection, hemothorax. - Data Points Imaging Results: Imaging Impressions Chest X-Ray 12/01/17 10:37 Impression: 1. Complete opacification of the right lung with shift of the mediastinum and trachea towards the left, likely representing pleural effusion, atelectasis, and possibly tumor. Consider ultrasound of the right hemithorax or CT chest. 2. Patchy left upper lobe and left lower lobe acute pneumonitis. 3. No pneumothorax. Findings and recommendations discussed with emergency department physician, Arcadio Maciel MD at 1103 hours, December 01, 2017. Final report concurs with initial preliminary interpretation. Imaging: Discussed imaging studies w/ food service representative Radiologist, I viewed and interpreted images myself Laboratory Results: Laboratory Results 12/01/17 11:00 12/01/17 11:00 12/01/17 12/01/17 12/01/17 11:00 11:00 11:00 WBC 16.85 10^3/uL H 10^3/uL (3.80-9.50) RBC 4.11 10^6/uL L 10^6/uL (4.18-5.33) Hgb 10.2 g/dL L g/dL (12.6-16.3) Hct 31.9 % L % (38.0-47.0) MCV 77.6 fL L fL (81.5-99.8) MCH 24.8 pg L pg (27.9-34.1) MCHC 32.0 g/dL L g/dL (32.4-36.7) RDW 16.7 % H % (11.5-15.2) Plt Count 458 10^3/uL H 10^3/uL (150-400) MPV 8.3 fL L fL (8.7-11.7) Neut % (Auto) 91.3 % H % (39.3-74.2) Lymph % (Auto) 1.8 % L % (15.0-45.0) [place] % (Auto) 5.8 % % (4.5-13.0) Eos % (Auto) 0.1 % L % (0.6-7.6) Baso % (Auto) 0.2 % L % (0.3-1.7) Nucleat RBC Rel Count 0.0 % % (0.0-0.2) Absolute Neuts (auto) 15.39 10^3/uL H 10^3/uL (1.70-6.50) Absolute Lymphs (auto) 0.31 10^3/uL L 10^3/uL (1.00-3.00) Absolute Monos (auto) 0.97 10^3/uL H 10^3/uL (0.30-0.80) Absolute Eos (auto) 0.02 10^3/uL L 10^3/uL (0.03-0.40) Absolute Basos (auto) 0.03 10^3/uL 10^3/uL (0.02-0.10) Absolute Nucleated RBC 0.00 10^3/uL 10^3/uL (0-0.01) Immature Gran % 0.8 % % (0.0-1.1) Immature Gran # 0.13 10^3/uL H 10^3/uL (0.00-0.10) PT 22.9 SEC H SEC (12.0-15.0) INR 2.02 H (0.83-1.16) APTT 201.6 SEC H* SEC (23.0-38.0) Sodium 133 mEq/L L mEq/L (134-144) Potassium 3.3 mEq/L L mEq/L (3.5-5.2) Chloride 94 mEq/L L mEq/L (97-110) Carbon Dioxide 29 mEq/l mEq/l (22-31) Anion Gap 10 mEq/L mEq/L (8-16) BUN 12 mg/dL mg/dL (7-23) Creatinine 0.4 mg/dL L mg/dL (0.6-1.0) Estimated GFR > 60 Glucose 130 mg/dL H mg/dL (70-100) Calcium 8.1 mg/dL L mg/dL (8.5-10.4) Troponin I < 0.012 ng/mL ng/mL (0.000-0.034) NT-Pro-B Natriuret Pep 302 pg/mL H pg/mL (0-125) General Time Seen by Provider: 12/01/17 10:36 Initial Vital Signs: Initial Vital Signs Temperature (C) 36.4 C 12/01/17 10:34 Heart Rate 120 H 12/01/17 10:34 Respiratory Rate 27 H 12/01/17 10:34 Blood Pressure 129/89 H 12/01/17 10:34 O2 Sat (%) 91 L 12/01/17 10:34 O2 Delivery Mode Non-Rebreather Mask O2 (L/minute) 5 Allergies/Adverse Reactions: povidone-iodine [From Betadine] Allergy (Intermediate, Verified 12/01/17 10:32) Rash soap [From Betadine] Allergy (Intermediate, Verified 12/01/17 13:17) Rash Home Medications: Medication Instructions Recorded Acetaminophen [Tylenol ES 500 mg 500 mg PO Q6 PRN 11/13/17 (*)] Folic Acid [Folic Acid 1 MG (*)] 1 mg PO DAILY 12/01/17 Gilotrif 40 mg PO DAILY@03 12/01/17 Multivitamins [Multivitamin (*)] 1 each PO DAILY 12/01/17 Warfarin Sodium [Coumadin 2.5MG 2.5 mg PO DAILY@16 12/01/17 (*)] oxyCODONE IR [Oxycodone Ir (*)] 2.5 mg PO Q4 PRN 12/01/17 Departure - Departure Disposition: [facility] Inpatient Acute Clinical Impression: Hypoxemia Lung cancer Qualifiers: Laterality: unspecified laterality Lung location: overlapping sites Qualified Code(s): C34.80 - Malignant neoplasm of overlapping sites of unspecified bronchus and lung Condition: Fair Report Scribed for: Arcadio Maciel Report Scribed by: Ramonita Sandy Date of Report: 12/01/17 Time of Report: 11:08 Physician Review and Approval Statement: Portions of this note were transcribed by an ED scribe. I personally performed the history, physical exam, and medical decision making; and confirm the accuracy of the information in the transcribed note.
[2017-12-01 11:10] LABS: PLATELET COUNT 458 10^3/uL (150-400)
[2017-12-01 11:35] LABS: INR 2.02 (0.83-1.16)
[2017-12-01 12:00] LABS: PROTIME(PATIENT) 22.9 SEC (12.0-15.0)
[2017-12-01] MEDS ORDERED: ONDANSETRON DISINTEGRATING 4 MG TAB PO PRN (12:24)
[2017-12-01] MEDS ORDERED: ACETAMINOPHEN 325 MG TAB PO PRN (12:24)
[2017-12-01] MEDS ORDERED: ALBUTEROL 3 ML DEYVIAL IH PRN (12:24)
[2017-12-01] MEDS ORDERED: ONDANSETRON 4 MG/2 ML VIAL IVP PRN (12:24)
[2017-12-01] MEDS ORDERED: PHYTONADIONE 2.5 MG/2.5 ML ORAL UDL PO ONE (13:35)
--- NOTE | 2017-12-01 14:19 | GCON ---
[f rep st] CONSULTATION REASON FOR CONSULTATION: Metastatic non-small cell lung cancer with increasing dyspnea and right ple ural effusion. HISTORY OF PRESENT ILLNESS: The patient is a very pleasant 57-year-old female, with stage IV non-sma ll cell lung cancer who is now being admitted for increasing dyspnea, associated with increased right pleural effusion. The patient's oncology history dates back to January of 2017, when she was initiall y treated for what was thought to be pneumonia. CT scan identified mediastinal adenopathy, along wit h 2 lesions in the liver. A CT angiogram at that time identified small volume left lower lobe subseg mental PE. There was a right suprahilar mass with narrowing of the right upper and right middle lobe , associated with extensive adenopathy in the hilum, subcarinal region and supraclavicular region. U ltrasound of the lower extremities showed bilateral DVTs in the calves with superficial thrombus in t he right greater saphenous vein. Bronchoscopy in January, identified an endobronchial lesion ultimatel y confirming a non-small cell lung cancer favoring an adenocarcinoma. The tissue amount was scant an d therefore she underwent a left supraclavicular lymph node biopsy, which demonstrated metastatic kavita nocarcinoma compatible with a lung primary. Molecular markers identified a sensitizing EGFR mutation (L858R) with low-level PD-L1 expression (15%). Next-Gen sequencing was negative for other targets. She received palliative radiation to the right hilum in January. She started on afatinib in March. The patient continued on afatinib until October. At that time, she was felt to have progressive disease based on a CT scan done at [facility] on November 20. The CT scan showed progressive right hemithoracic pleural-parenchymal consolidation, with a mild mediastinal shift from right to left. There was also interval development of ground-glass attenuation infiltrates throughou t the left upper lobe, which were indeterminate for inflammation, infection or neoplastic etiology. She also had extensive bone disease that was felt to be stable. In the abdomen, she had progressive liver metastases and an increase in the size of the left adrenal gland metastases along with retroper itoneal medial adenopathy. The patient then underwent a left inguinal node biopsy to identify whethe r or not she had a T790M mutation. Dr. Bhagat reviewed those results approximately 2 weeks ago and this was felt to be negative. The plan was for her to start on carboplatin/pemetrexed as second-line the rapy. She was seen in the office last week with an INR of 4. The warfarin was held. She did have some inc reasing dyspnea and the plan was for her to have an elective thoracentesis this coming week. Currently, the patient is in the emergency room with her . They report a gradual increase in onset of dyspnea over the last 2 months, but much more so in the last week. She is coughing up scant amounts of sputum. There has been no fever. She denies any chest pain. She denies any other pain other than in her back. PAST MEDICAL HISTORY: Chronic low back pain. Otherwise negative other than HPI. PAST SURGICAL HISTORY: Prior appendectomy, hysterectomy without oophorectomy. She had a left Achill es tendon repair. FAMILY HISTORY: Her father had colon cancer in his 70s. She has 3 daughters, ages 19, 21 and 25, al l of whom are healthy. SOCIAL HISTORY: The patient is to . She previously has worked at [employer]. She uses alcohol rarely. REVIEW OF SYSTEMS: 10-point review of systems is negative other than HPI. PHYSICAL EXAM: GENERAL: The patient is sitting upright in bed in the emergency room. She appears d yspneic. She has a non-rebreather on. VITAL SIGNS: Blood pressure is 166/90, heart rate 116, respi ratory rate is 38%, O2 saturation is 93% on 6 L. HEENT: Pupils are equal. Sclerae anicteric. Orop harynx is not examined. LUNGS: Absent breath sounds on the right, with scattered crackles on the le ft. HEART: Tachycardic, regular rate. ABDOMEN: Soft, nontender. EXTREMITIES: 1+ bilateral lower extremity edema. LABORATORY DATA: White blood cell count 16.8, hematocrit 31.9, platelet count 458. Basic metabolic panel is notable for potassium of 3.3, creatinine of 0.4. INR is 2. PTT is reported as 201, likely drawn from an IV. Chest x-ray shows complete opacification of the right lung with shift of the media stinum and trachea toward the left. There are patchy left upper lobe and left lower lobe acute pneum onitis. There is no pneumothorax. IMPRESSION AND PLAN: This is a 57-year-old female with metastatic adenocarcinoma of the lung with me tastases to regional lymph nodes, liver and bone, who now presents with increasing dyspnea and increa sing right pleural effusion. Her past history is notable for bilateral deep vein thrombosis, along w ith pulmonary emboli. She had an initial response to the first-line therapy with afatinib and was pl anning on starting on second-line therapy with carboplatin and pemetrexed in the near future. At this time, likely the pleural effusion is the primary cause for the dyspnea. Large volume thorace ntesis will be performed. I suspect this is a malignant effusion and we can send for cytology. She may have infectious component in addition. I will discuss the situation with the hospitalist, but I suspect we will be covering empirically with antibiotics as well. We will continue to follow along with you. /[id number]/MODL
[2017-12-01] MEDS ORDERED: oxyCODONE IR 5 MG TAB PO PRN (15:07)
[2017-12-01] MEDS: CEFEPIME HCL 2 GM in NS 100 ML IV SCH (15:53)
--- NOTE | 2017-12-01 16:09 | GHP ---
[f rep st] HISTORY AND PHYSICAL DATE OF ADMISSION: 12/01/2017 CHIEF COMPLAINT: Shortness of breath. HISTORY OF PRESENT ILLNESS: A 57-year-old female with a diagnosis of metastatic non-small cell lung cancer, who presents with markedly increased shortness of breath over the course of the preceding 72 hours. The patient reports having oxygen requirement soon after her original diagnosis of her lung c ai, which then resolved around March of 2017. She then over the course of the year had some chron ic shortness of breath that required a half a liter of oxygen supplementally. The patient reports th at this had been quite stable until approximately 2-3 weeks ago when she started experiencing increas ed shortness of breath. Was seen in the outpatient clinic, and was noted on CT to have a pleural eff usion on the right side. The patient was planning on presenting for outpatient thoracentesis, when 3 days prior to presentation her shortness of breath became markedly worse. The patient up-titrated h er oxygen until she reached out to Oncology, who recommended that she present to the emergency depart ment for evaluation. In the emergency department, the patient appears dyspneic on examination. Carlos es any chest pain, but describes a tightness in her chest with a limitation in her breathing. Denies palpitations. Denies vision changes or headache. Reports a cough only intermittently that is nonpr oductive of sputum. She denies hemoptysis or pleuritic chest pain. The patient denies any nausea. Has had loose stool, but only on the day of presentation, described as nonbloody. Denies dysuria, de nies hematuria. She has experienced bilateral lower extremity edema, which has also been worse in th e last week. Reports poor appetite, but has been making an effort to maintain normal nutritional sta tus. Denies any dysphagia. The patient has metastatic lesion in the left jaw, which has led to a fr acture and limited jaw mobility. The patient was diagnosed with pulmonary embolism, previously thoug ht secondary to her malignancy. She has been stable on anticoagulation. Did have a recent increase in her INR to 4, for which she has had her medications held. PAST MEDICAL HISTORY: Metastatic non-small cell lung cancer. Receiving chemotherapy, status post pa lliative radiation. SOCIAL HISTORY: Negative for tobacco. She consumes rare alcohol. No illicit drugs. FAMILY HISTORY: Positive for colon cancer in her father. ADVANCED DIRECTIVES: Patient is full cor, full tube. REVIEW OF SYSTEMS: A 10-point review of systems is negative with the exception of that reported in t he HPI. PHYSICAL EXAMINATION: VITAL SIGNS: Blood pressure 129/89, heart rate in the 120s, respiratory rate in the 30s, saturating 93% on 6 L non-rebreather, afebrile at 36.6. GENERAL: This is a middle-aged female in mild distress. HEENT: Notable for dry mucous membranes. Eye exam is negative for any ict erus. CARDIAC: Patient is tachycardic, but regular. PULMONARY: The patient has no breath sounds o n the right, with normal air movement on the left. No rales or rhonchi are appreciated. GASTROINTES TINAL: Positive bowel sounds. ABDOMEN: Soft and nontender. MUSCULOSKELETAL: The patient has 2+ p itting edema which is symmetric of the bilateral lower extremities. NEUROLOGIC: She is alert and or iented x3. PSYCHIATRIC: She is pleasant and cooperative on interview and examination. DATA: White count is 16.8, hematocrit 31.9, platelets of 458, INR of 2.02. Sodium of 133, potassium of 3.3, creatinine is 0.4, troponin less than 0.012. Chest x-ray, which I personally reviewed and interpreted, shows complete whiteout of the right chest, no airspace abnormalities on the right. ASSESSMENT AND PLAN: This is a 57-year-old female presenting with shortness of breath. 1. Acute right-sided pleural effusion. Patient's respiratory status has markedly declined in the la st several days. There is outside imaging with CT in the last 10 days that shows this pleural effusi on, in addition to possible necrotic lung tissue. At this point we are assuming the pleural effusion is malignant in origin; however, there is concern it could have secondarily been infected with this reported necrotic tissue. Plan for emergent chest tube placement, pleural fluid analysis and close m onitoring in the stepdown unit. Patient's respiratory status currently is in the high 30s with sever e tachycardia. Very concerned the patient has little to no respiratory reserve. 2. Sepsis. The patient is presenting with leukocytosis, tachycardia, presumed source is pulmonary. Will empirically treat with IV antibiotics. Blood cultures have been obtained from the emergency de partment. Will additionally fluid resuscitate. 3. Acute leukocytosis. Patient's white count is 16.8. She does report an episode of diarrhea today , but most likely source is pulmonary in nature. Will have an easier time evaluating her lung parenc hyma after chest tube is placed. Again, empirically treating with IV antibiotics. Will additionally send a GI pathogen panel to workup her diarrhea. 4. Hyponatremia. Suspect this is hypovolemic in nature based on her poor oral intake. Will treat w ith IV fluids and follow. 5. Hypokalemia. Suspect this may be related to the diarrhea. Will replete per protocol. 6. History of pulmonary embolism/deep venous thrombosis. The patient's INR is 2.02. I have given 5 of vitamin K. Can initiate Lovenox bridge after chest tube placement. 7. Metastatic non-small cell lung cancer. Oncology is following. Have continued the patient's Gilo trif currently. Will await additional recommendations from Oncology. Cytology will be sent on her e ffusion. 8. Prophylaxis with Lovenox after chest tube placement. 9. Diet n.p.o. until after chest tube placement. DISPOSITION: I expect greater than 2 midnights as patient is presenting critically ill, requiring st ep-down unit care and emergent chest tube placement. I discussed the case with Dr. Gabriel Ladd. The p atient will be admitted to the SDU for close monitoring. /[id number]/MODL
--- NOTE | 2017-12-01 17:50 | GCON ---
[f rep st] CONSULTATION PULMONARY CONSULTATION DATE OF CONSULTATION: 12/01/2017 HISTORY OF PRESENTING ILLNESS: This patient is a 57-year-old female with a history of widely metasta tic adenocarcinoma, who presents today with slowly progressive shortness of breath over the last jennifer ral months, that reached a pinnacle this weekend and she presented to the emergency department with a very large right-sided pleural effusion in the setting of progressive cancer. We first met, sheri trivedi, as an outpatient in January of 2017, when she was admitted with a pneumonia with an abnormal CT s can. My suspicion at the time was that this was all related to pneumonia and a follow-up CT scan was planned. She had presented with upper respiratory symptoms at the time, treated with antibiotics an d said she felt substantially better. However on 02/05/2017, she presented with shortness of breath to the emergency department. A CT angiogram revealed pulmonary embolism and ultrasound of her lower extremities revealed bilateral deep vein thromboses. The mass was still present at this time. She u nderwent bronchoscopy, which produced the diagnosis of adenocarcinoma. She subsequently underwent a lymph node biopsy of a clavicular node that confirmed the diagnosis. She had palliative radiation th erapy at that time. Her workup revealed bony lesions in both the mandible as well as her right ischi al tuberosity. She continued to get chemotherapy and had a port placed in mid October for ongoing t reatment. However, a CT scan reportedly done at [facility] on 11/20/2017, showed p rogressive disease, right consolidation and pleural effusion that was quite large with a shift from t he right to the left. There was also a left upper lobe infiltrate at that time, progressive liver le sions, but stable bone lesions. She was planned to get a thoracentesis in 2 days, but was unable to wait that much longer because of shortness of breath. She also had an elevated INR of 4.8 on 11/25, and her Coumadin was held at that time and her INR is 2.0 today. She is now admitted for a thoracent esis and/or chest tube. REVIEW OF SYSTEMS: Otherwise negative. PAST MEDICAL HISTORY: 1. Includes lung cancer as described above. 2. Pneumonia. PAST SURGICAL HISTORY: Includes hysterectomy, appendectomy, Achilles tendon repair, port placement, lymph node biopsies in a variety of locations. SOCIAL HISTORY: She is a lifelong nonsmoker, but I believe her family history may include malignancy . CURRENT MEDICATIONS: Include Tylenol, Proventil, cefepime, multivitamin, Zofran, oxycodone and warfa rin, which as I said is being held. PHYSICAL EXAMINATION: GENERAL: In the ICU, she was afebrile. She was mildly somnolent but was aler t enough to answer questions appropriately. Her was there and filled in most of the details. She did not appear to be in as much respiratory distress as her vital signs might indicate, but was clearly uncomfortable. VITAL SIGNS: Blood pressure is 166/90, respirations were 30s, oxygen saturation 93% on 6 L non-rebre ather mask. HEENT: Pupils equally round and reactive to light. Nonicteric and noninjected. Mucous membranes ar e moist without erythema or exudate. NECK: Supple without adenopathy or jugular vein distention. CHEST: Breath sounds were absent on the right, but she had diffuse crackles on the left without whee zing. HEART: Regular rate and rhythm without murmurs, rubs, gallops. ABDOMEN: Soft, nontender, nondistended without hepatosplenomegaly. EXTREMITIES: Some edema. NEURO: Exam was nonfocal. OBJECTIVE DATA: CT scan as described above. Chest x-ray done today shows complete whiteout of the r ight side. Review of her chest x-ray from 11/14 shows similar findings in terms of pleural effusion, though there is probably some visible right upper lobe lung aeration going on at that time. White count of 16.8, hematocrit of 31.9, platelets 458. INR of 2.0. Negative troponin. Relatively unremarkable basic metabolic panel. ASSESSMENT/PLAN: Shortness of breath, which seems to have been progressive over the last several fri ths. 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 My suspicion for acute thrombotic disease in a patient with acti ve cancer who has been coming off her Coumadin for the last several days is quite high. The therapy would simply be anticoagulation once it is appropriate to do. In the short term, I think that a ches t tube would be warranted at this time, mostly because my suspicion for malignant pleural effusion is quite high, and empyema is also on the differential diagnosis. Depending on the findings, she may b e a good candidate for either a talc pleurodesis or PleurX catheter, which I described to the patient and her in some detail today. I think putting the chest tube in the 1st place will give us an idea of what we are up against, and whether that is an appropriate change. I also agree with anti biotics at this time, since she does apparently have some left upper lobe infiltrates, has had some c ough and that certainly may represent an ongoing pneumonia in an otherwise immunocompromised patient. We will obviously continue to follow closely. Interventional Radiology is coming to do her chest t ubes now. She was given vitamin K as well, which I think is not likely to cause any difficulty. /[id number]/MODL
[2017-12-01] MEDS ORDERED: NALOXONE HCL 0.4 MG/ML INJ IVP PRN (18:56)
[2017-12-01] MEDS ORDERED: MIDAZOLAM 2 MG/2 ML VIAL IVP PRN (18:56)
[2017-12-01] MEDS ORDERED: fentaNYL 100 MCG/2 ML INJ IVP PRN (18:56)
[2017-12-01] MEDS ORDERED: FLUMAZENIL 0.5 MG/5 ML MDV IVP PRN (18:56)
[2017-12-01] MEDS ORDERED: LIDOCAINE 1% 300 MG/30 ML SDV ONE (18:58)
[2017-12-01] MEDS ORDERED: fentaNYL 100 MCG/2 ML INJ ONE (19:00)
[2017-12-01] MEDS ORDERED: NALOXONE HCL 0.4 MG/ML INJ ONE (19:00)
[2017-12-01] MEDS: NS 1,000 ML IV SCH (20:01)
--- NOTE | 2017-12-01 20:11 | PDRADPN ---
Radiology Procedure Note Date of Procedure: 12/01/17 Radiologist: Aravind Hernandez Anesthesia: Local (Specify) Pre-op Diagnosis: Lung CA Post-op Diagnosis: Same Indication: SOB, hypoxia, tachypnea, large right pleural effusion Procedure: Right pleural [place] drain Finding(s): 15 F tunneled right pleural drainage tube (Chris Drain) placed, in good position. 1.7 liters of bloody effusion were evacuated. Right lung remains completely atelectatic, compatible with obstruction of right main bronchus. Inf/Abcess present in the surg proc area at time of surgery?: No EBL: Minimal Complications: None. The patient tolerated the procedure well. O2 up and tachypnea less after drainage. Drains: Other (15 F Chris drain, right pleural)
[2017-12-01] MEDS: WARFARIN SODIUM 2.5 MG TAB PO SCH (20:49)
[2017-12-02] MEDS: CEFEPIME HCL 2 GM in NS 100 ML IV SCH ×2 (00:30→08:28)
[2017-12-02] MEDS ORDERED: FUROSEMIDE 20 MG/2 ML VIAL IVP ONE (00:49)
[2017-12-02] MEDS: fentaNYL 100 MCG/2 ML INJ IVP PRN ×2 (01:09→05:00)
[2017-12-02] MEDS: GILOTRIF 40 MG PO SCH ×2 (02:31→23:45)
[2017-12-02] MEDS: LORazepam 2 MG/ML INJ IVP PRN ×3 (03:40→21:38)
[2017-12-02] MEDS ORDERED: PROTOCOL POTASSIUM 1 DOSE MISC PRN (04:27)
[2017-12-02] MEDS ORDERED: PROTOCOL MAGNESIUM 1 DOSE IV PRN (04:27)
[2017-12-02 05:41] LABS: PLATELET COUNT 304 10^3/uL (150-400)
[2017-12-02 05:50] LABS: INR 1.57 (0.83-1.16); PROTIME(PATIENT) 18.9 SEC (12.0-15.0)
[2017-12-02] MEDS ORDERED: POTASSIUM Cl (KCl) 50 ML IV ONE (05:59)
[2017-12-02] MEDS ORDERED: HEPARIN 10,000 UNIT/10 ML MDV IVP PRN (07:34)
[2017-12-02] MEDS ORDERED: HEPARIN 10,000 UNIT/10 ML MDV IVP ONE (07:45)
[2017-12-02] MEDS: HEPARIN/DEXTROSE 500 ML IV SCH (08:04)
[2017-12-02] MEDS ORDERED: PROPOFOL/EMULSION 1,000 MG/100 ML BOTTLE IV ONE (08:06)
[2017-12-02] MEDS ORDERED: fentanYL/NACL/100 ML BAG IV ONE (08:12)
[2017-12-02] MEDS: PROPOFOL/EMULSION 100 ML IV SCH (08:25)
[2017-12-02] MEDS: fentaNYL/NACL 100 ML IV SCH (08:25)
[2017-12-02] MEDS ORDERED: MIDAZOLAM 2 MG/2 ML VIAL IVP ONE (08:30)
[2017-12-02] MEDS ORDERED: LORazepam 2 MG/ML INJ IVP ONE (08:30)
[2017-12-02] MEDS ORDERED: SUCCINYLCHOLINE CHLORIDE 200 MG/10 ML SYR IVP ONE (08:30)
--- NOTE | 2017-12-02 08:36 | SOAPPROG ---
SOAP Progress Note Assessment/Plan: Assessment: Hospitalist Night Float NOte Late entry note: Patient was evaluated multiple times over the course of the evening. Admitted with large right pleural effusion and acute respiratory failure. Status post pigtail catheter to drain. Over the course of the evening patient continued to have progressive decline in respiratory status and worsening hypoxia despite being on 15 L non-rebreather. She was subsequently transitioned to BiPAP with improvement in her O2 sats but continued with increased work of breathing and tachycardia into the 130s. During the initial visual visit patient was awake and interactive. I did review with her her wishes for resuscitation she desired to be a full code. She did note that if she required intubation that endotracheal tubing may be difficult secondary to a large tumor and limited jaw range of motion. I did initially asked the patient if she desired for me to speak with her but at that time she wanted to see how she responds to the BiPAP. lasix was given. Patient continued to have progressively worsening on respiratory status later in the shift with decreased responsiveness and patient's was notified. Anesthesia with the General surgery backup were consulted emergently for intubation. Endotracheal intubation was successful with sedation. was present at bedside and questions answered. Concern for PE and possible reperfusion injury. Once patient is stabilized will require further evaluation with imaging. Heparin drip ordered for anticoagulation. Patient's current INR 1.5 down from greater than 2. Total critical care time today 12/02/2017 is 55 min including multiple reassessments discussion with at bedside and discussion with consultants. Patient's attending hospitalist was updated. 12/02/17 08:26 12/02/17 09:50 Objective: Vital Signs Temp Pulse Resp BP Pulse Ox 38 C 138 H 36 H 138/92 H 88 L 12/02/17 06:00 12/02/17 06:00 12/02/17 06:00 12/02/17 06:00 12/02/17 06:00 Microbiology 12/01/17 17:30 Gastrointestinal Tract Panel (PCR) - Final Stool No Organism Detected Laboratory Results 12/02/17 05:20 12/02/17 05:20 12/01/17 12/02/17 12/03/17 05:59 05:59 05:59 Intake Total 915 Output Total 4950 Balance -4035 PT 18.9 SEC (12.0-15.0) H 12/02/17 05:20 INR 1.57 (0.83-1.16) H 12/02/17 05:20 ICD10 Worksheet Patient Problems: Problems Problem Status Onset Hypoxemia Acute Lung cancer Acute Appendicitis Acute Mass of upper lobe of right lung Acute Pulmonary embolism Acute
[2017-12-02] MEDS ORDERED: MIDAZOLAM 2 MG/2 ML VIAL ONE (08:57)
[2017-12-02] MEDS ORDERED: ROCURONIUM 100 MG/10 ML VIAL ONE (08:58)
[2017-12-02] MEDS ORDERED: FOLIC ACID 1 MG TAB PO SCH (09:00)
[2017-12-02] MEDS ORDERED: MULTIVITAMINS 1 EACH TAB PO SCH (09:00)
[2017-12-02] MEDS ORDERED: KETAMINE 200 MG/20 ML VIAL ONE (09:02)
--- NOTE | 2017-12-02 09:15 | PDANEPAE ---
ANE History of Present Illness Called emergently to intubate patient. Patient with Non Rebreather in situ, oxygen saturation of 81%, limited mouth opening due to patient clamping upper and lower jaws together. 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 On physical exam I was able to gently displace mandible without difficulty. Asked ICU staff to administer Ketamine 20mg which relaxed oral opening further and helped with pain. Easy placement of oral airway. Patient preoxygenated, additional medications prior to intubation were Midazolam 1mg followed by Succinycholine 70 mg. Atraumatic direct laryngoscopy with glidescope, good view of vocal cords with evidence of mass on right side of airway however not obstructive of view. Easy placement of 6.0 ETT, Positive change of CO2 device, Bilateral breath sounds, easy to ventilate. Care transferred to Respiratory Therapy and ICU staff. VSS. ANE Past Medical History - Pulmonary History Hx COPD: No Hx Asthma/Reactive Airway Disease: No Hx Recent Upper Respiratory Infection: No Hx Oxygen in Use at Home: Yes O2 in Use at Home (L/minute): 1 Hx Sleep Apnea: No Sleep Apnea Screening Result - Last Documented: Negative Pulmonary History Comment: PE 01/2017. PNEUMONIA 10/2017 RESIDUAL SOB PLACED ON OXYGEN - Neurologic History Hx Cerebrovascular Accident: No Hx Seizures: No Hx Dementia: No - Endocrine History Hx Diabetes: No - Renal History Hx Renal Disorders: No - Liver History Hx Hepatic Disorders: No - Neurological & Psychiatric Hx Hx Neurological and Psychiatric Disorders: No - Cancer History Hx Cancer: Yes Cancer History Comment: METS RT UPPER LOBE AND. JAW BONE LIMITED ABILITY TO OPEN - Congenital Disorder History Hx Congenital Disorders: No - GI History Hx Gastrointestinal Disorders: No - Other Health History Other Health History: CHEMO ORAL RX. RADIATION LAST 08/2017. DVT 01/2017 RLE - Chronic Pain History Chronic Pain: Yes - Surgical History Prior Surgeries: LT SUPRA CLAVICULAR BX. APPENDECTOMY 2013. PARTIAL HYSTERECTOMY. LT ACHILLES TENDON REPAIR ANE Review of Systems Review of Systems: ANE Patient History - Allergies Allergies/Adverse Reactions: povidone-iodine [From Betadine] Allergy (Intermediate, Verified 12/01/17 10:32) Rash soap [From Betadine] Allergy (Intermediate, Verified 12/01/17 13:17) Rash - Home Medications Home Medications: Acetaminophen [Tylenol ES 500 mg (*)] 500 mg PO Q6 PRN 11/13/17 [Last Taken 12/18 02:00] Folic Acid [Folic Acid 1 MG (*)] 1 mg PO DAILY 12/01/17 [Last Taken 11/30/17] Gilotrif 40 mg PO DAILY@03 12/01/17 [Last Taken 12/01/17 03:00] Multivitamins [Multivitamin (*)] 1 each PO DAILY 12/01/17 [Last Taken Unknown] Warfarin Sodium [Coumadin 2.5MG (*)] 2.5 mg PO DAILY@16 12/01/17 [Last Taken ] oxyCODONE IR [Oxycodone Ir (*)] 2.5 mg PO Q4 PRN 12/01/17 [Last Taken 12/01/17 00:00] - Smoking Hx Smoking Status: Never smoked ANE Labs/Vital Signs - Labs Result Diagrams: 12/02/17 05:20 12/02/17 05:20 - Vital Signs Blood Pressure: 138/92 Heart Rate: 138 Respiratory Rate: 36 O2 Sat (%): 88 Height: 162.56 cm Weight: 71.486 kg
--- NOTE | 2017-12-02 09:41 | PDINTPN ---
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 Drained, but still with opacification on CXR. Respiratory failure: Multifactorial, with effusion, lung cancer, possible pneumonia. CXR shows new infiltrates on right, could be fluid or infectious. Right lung persistent opacification could be loculated fluid or dense consolidation. Tachycardia: Likely sinus tachycardia as a response to critical illness Hypotension: Worse since sedation. Could be underlying component of sepsis. PE less likely Plan: CT Chest. Try to adjust ventilator to optimize ventilation, which has been a challenge. Await CT Chest results. Give a dose of albumin to try to improve intravascular volume. Will get sputum Cx, respiratory panel/influenza. Continue empiric antibiotics, consult ID. Will discuss appropriate aggressiveness of care with oncology. D/W Dr. Houston, RT, . 55 minutes, managing acute respiratory failure, hypoxemia despite mechanical ventilation, hypotension/tachycardia. 12/02/17 11:49 Subjective: Sedated, minimally responsive Objective: Vital Signs Temp Pulse Resp BP Pulse Ox 38 C 138 H 36 H 138/92 H 88 L 12/02/17 06:00 12/02/17 09:15 12/02/17 09:15 12/02/17 09:15 12/02/17 09:15 Microbiology 12/01/17 17:30 Gastrointestinal Tract Panel (PCR) - Final Stool No Organism Detected Laboratory Results 12/02/17 05:20 12/02/17 05:20 12/01/17 12/02/17 12/03/17 05:59 05:59 05:59 Intake Total 915 Output Total 4950 Balance -4035 PT 18.9 SEC (12.0-15.0) H 12/02/17 05:20 INR 1.57 (0.83-1.16) H 12/02/17 05:20 CXR: Slightly improved right opacification compared to CXR from 12/01/17, but still extensive opacification. Increased right alveolar infiltrates. Images reviewed by me. Laboratory Tests 12/01/17 12/02/17 12/02/17 11:00 05:20 09:00 pCO2 45 H pO2 67 Total CO2 27 ABG pH 7.37 O2 Concentration % 100 Respiration Rate 26 Assist Control YES Tidal Volume 400 Lactate Dehydrogenase 914 H NT-Pro-B Natriuret Pep 302 H Physical Exam - Physical Exam General Appearance: unresponsive, No alert EENT: normal ENT inspection, ET tube (oral) Neck: normal inspection Respiratory: respiratory distress (mild), No normal breath sounds (bronchial BS on right) Cardiac/Chest: edema (2+ anasarca), tachycardia (regular) Abdomen: normal bowel sounds, non-tender, soft Skin: normal color, warm/dry Extremities: normal inspection Neuro/Psych: No alert ICD10 Worksheet Patient Problems: Problems Problem Status Onset Hypoxemia Acute Lung cancer Acute Appendicitis Acute Mass of upper lobe of right lung Acute Pulmonary embolism Acute
--- NOTE | 2017-12-02 10:01 | PDMN ---
Medical Necessity Medical necessity: Patient meets inpatient criteria per physician note and [facility] Respiratory Failure GRG ( patient with metastatic non-small cell lung cancer, presenting w/ large R pleural effusion and acute respiratory failure ultimately requiring intubation and ventilation and emergent chest tube placement/drainage of effusion; sepsis: leukocytosis, tachycardia; anticipated LOS > 2 midnights for ongoing respiratory mgmt., IV antibiotics, chest tube drainage of effusion.)
--- NOTE | 2017-12-02 10:02 | ASMTCMCOM ---
CM Note CM Note Notes: 57 year old female admitted for SOB, PE, Lung CA S/P chemo and radiation. CM to follow for possible discharge needs. Date Signed: 12/02/2017 10:01 AM Electronically Signed By:Saritha Scott LCSW
[2017-12-02] MEDS ORDERED: ALBUMIN 25% 200 ML IV ONE (10:37)
[2017-12-02] MEDS ORDERED: IOPAMIDOL (ISOVUE 370) 100 ML BTL IV ONE (10:50)
[2017-12-02] MEDS ORDERED: NOREPINEPHRINE/NS 4 MG/500 ML BAG IV ONE (11:01)
[2017-12-02] MEDS ORDERED: VANCOMYCIN HCL/NORMAL SALINE 250 ML IV ONE (11:56)
[2017-12-02] MEDS ORDERED: VANCOMYCIN 1 GM in D5W 250 ML IV ONE (12:00)
--- NOTE | 2017-12-02 13:11 | ASMTCMCOM ---
CM Note CM Note Notes: Met with pt's Luis to provide info on caregiving group and caregiving resources. very involved with pt and did not think he could make it to caregiver support group. Offered resources on caregiving (articles and book and he welcomed the information. Date Signed: 12/02/2017 01:10 PM Electronically Signed By:Belkis Silverio LCSW
[2017-12-02] MEDS ORDERED: ALTEPLASE 2 MG VIAL IVP PRN ×2 (13:37→13:55)
--- NOTE | 2017-12-02 14:49 | GCON ---
[f rep st] CONSULTATION INFECTIOUS DISEASE CONSULTATION DATE OF CONSULTATION: 12/02/2017 REFERRING PHYSICIAN: Michael Cary MD REASON FOR CONSULTATION: Pneumonia. CHIEF COMPLAINT: Shortness of breath. HISTORY OF PRESENT ILLNESS: This is a 57-year-old female with past medical history significant for metastatic non-small cell lung cancer, diagnosed earlier this year. She is status post radiation to the right lung in January and then was placed on afatinib from March onwards, which she is continuing to take. Per the record, she has metastasis to the liver, to the left adrenal gland, to the jaw, to the right shoulder. She apparently has been having increasing shortness of breath since October. In early October, she started to have some rhinorrhea and had some fevers at that time, but those symptoms had quickly improved. She was restarted on oxygen at half a liter, and was improving with her symptoms. She was having some shortness of breath but was again remaining stable on a low dose of oxygen. However, over the last week, she is having increasing shortness of breath. She had a CAT scan done on the outpatient which showed increasing pleural effusion and was planning to have a thoracentesis done in the outpatient tomorrow. Over the last 3 days, her shortness of breath has acutely worsened. She apparently has been having intermittent dry cough with very minimal sputum production over this timeframe. According to her , she has not had any fevers or shaking chills recently. The sputum was clear, mildly yellow without any blood, according to the . Due to that, she came into the hospital for further evaluation. She had a chest x-ray done which showed patchy left upper lobe and left lower lobe pneumonitis with complete opacification of the right lung, and pleural effusion. She underwent catheter placement yesterday, which drained 1.5 L. Acutely, overnight, she spiked to 38.4. Apparently, earlier this morning, she spiked to 38.5, her O2 saturation was dropping and she required intubation. She had a CAT scan of the chest, which showed dense diffuse consolidation of the right lung with some early changes suggestive of early necrosis, along with left upper lobe and left lower lobe pneumonitis. Her white blood cell count on admission was 16.8, it has acutely increased to 25.9 with an ongoing left shift. 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 History was obtained from medical records and her at that time, as the patient is intubated and sedated at present. Infectious Disease is now called for further evaluation. 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 She, according to the , has not had any trouble swallowing or chewing her food , once she gets the food past her teeth. But, because she cannot open it very wide, there is some difficulty there. She does eat some solid pieces of meat. REVIEW OF SYSTEMS: Cannot be obtained. The patient is intubated, sedated in the intensive care unit. PAST MEDICAL HISTORY: Significant for metastatic non-small cell lung cancer, diagnosed earlier this year. Status post radiation therapy in January 2017, and chemotherapy from March onwards with afatinib. Other past medical history includes chronic low back pain, DVT and PEs. PAST SURGICAL HISTORY: Significant for appendectomy, hysterectomy, oophorectomy and left Achilles tendon repair. ALLERGIES: To iodine. SOCIAL HISTORY: Nonsmoker. Drinks alcohol socially. Lives with her . Has no pets. Travelled to [place] in July of this year. Had traveled to [place] and [place] in 2015. She does not live near a farm, has not had any close contacts with animals. FAMILY HISTORY: Significant for colon cancer in her father. MEDICATIONS: As per JAN. PHYSICAL EXAMINATION: VITAL SIGNS: Temperature current 38.5, pulse is 137, blood pressure is 79/51, saturations are 90% on 100% FIO2, respiratory rate is 24. GENERAL: The patient is in the intensive care unit, intubated and sedated. HEENT: Head is normocephalic, atraumatic. Eyes are pinpoint bilaterally. No conjunctival injection. No petechiae noted. Oropharynx, limited evaluation. She has an ET tube in place. She has mild pigmentation changes over her face. CARDIOVASCULAR: S1, S2. Regular rhythm. She is tachycardic. No obvious murmurs appreciated. RESPIRATORY: Coarse breath sounds on the left side. Diminished breath sounds on the right side. ABDOMEN: Positive bowel sounds in all quadrants. Soft, nontender, nondistended. EXTREMITIES: Lower extremity edema, pitting in nature. MUSCULOSKELETAL: No obvious joint effusion. SKIN: No obvious rashes. LABORATORY DATA: White blood cell count is 25.5, hemoglobin 10.8, platelets are 304, neutrophil count is 91%. Sodium 137, potassium 3.8, chloride 96, bicarb 29, BUN is 12, creatinine 0.5. Blood gas with pH 7.42, pO2 60, pCO2 43, total bicarb 28. Followup ABG with pH of 7.37, pO2 of 67, pCO2 of 45, total bicarb 27. Microbiology: Blood cultures x2 sets are pending. Stool studies with no organisms detected. Imaging results have all been reviewed by me and are stated above. ASSESSMENT: 1. Bilateral pneumonitis with early necrotizing pneumonia. 2. Stage IV non-small cell cancer. At this point in time, her CT scan of the chest images were reviewed by me, care discussed with her , for additional history. I agree with vancomycin, we will change cefepime to a broader agent to include oral anaerobes. We will start Zosyn therapy. Will continue to monitor renal function closely while on vancomycin and Zosyn concomitantly. Agree with blood cultures and sputum cultures. Agree with respiratory viral panel. We will add cytomegalovirus studies, serum galactomannan, histoplasma urine antigen, and coccidioidomycosis antibodies, PCP as well. Plan of care reviewed with her . Care coordinated with her nurse and the Industry Analyst team. I thank you very much for providing this opportunity to care for your patient in consultation. /[id number]/MODL MTDD
--- NOTE | 2017-12-02 15:55 | SOAPPROG ---
SOAP Progress Note Assessment/Plan: Assessment/Plan: 57 yo woman w stage IV NSCLC admitted w resp fx 1. Resp fx - intubated overnight s/p CT placement CT demonstrates R lung opacification and e/o necrosis +/- pneumonia; left lung also w patchy infiltrates ID consulted and on broad spectrum abx concern from pulmonary that wont be able to reverse this process in a timely manner she is currently septic and on pressors 2. 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 Pneumonia/necrosis - broad spectrum abx appreciate ID 4. Hx of DVT - on anticoagulation watching for bleeding will follow 12/02/17 16:01 Subjective: Intubated overnight sedated CT in place Objective: Vital Signs Temp Pulse Resp BP Pulse Ox 38.4 C H 138 H 24 H 84/58 L 92 12/02/17 13:50 12/02/17 13:50 12/02/17 13:50 12/02/17 13:50 12/02/17 13:50 Microbiology 12/02/17 12:40 Respiratory Panel (PCR) - Final Nasal, Sinus - [place] Viral Transport No Organism Detected 12/01/17 17:30 Gastrointestinal Tract Panel (PCR) - Final Stool No Organism Detected Laboratory Results 12/02/17 05:20 12/02/17 13:30 12/01/17 12/02/17 12/03/17 05:59 05:59 05:59 Intake Total 915 200 Output Total 4950 Balance -4035 200 PT 18.9 SEC (12.0-15.0) H 12/02/17 05:20 INR 1.57 (0.83-1.16) H 12/02/17 05:20 intubated, sedated gen - nonresponsive heent - ETT resp - coarse BS anteriorly abd-soft, NT Ext - mild edema ICD10 Worksheet Patient Problems: Problems Problem Status Onset Hypoxemia Acute Lung cancer Acute Appendicitis Acute Mass of upper lobe of right lung Acute Pulmonary embolism Acute
[2017-12-02] MEDS ORDERED: ALBUMIN 5% 500 ML IV ONE (16:20)
--- NOTE | 2017-12-02 16:46 | HOSPPROG ---
Hospitalist Progress Note Assessment/Plan: # Sepsis/septic shock - pt with WBC 25, tachycardia, fever and new hypotension - pulmonary source CTA chest (personally reviewed and interpreted) diffuse bilateral infiltrates - IVF/albumin - broad spectrum Abx Vanc/Zosyn - serologies pending per ID # acute Hypoxic respiratory failure - pt with some reported relief after thoracentesis overnight - then early am with progressive distress Failed non-invasive ventilation - ETT placed early this am - currently oxygen saturations 91% on 100% Fi02 CTA - confirms no PE -lung parenchyma with severe infiltrates bilaterally and perfusion compromised tissue on right - antibiotics broadened from cefepime - > Vanc/Zosyn - admit Bcx remain NGTD - cont ventilator support # Pleural effusion - malignant s/p CT overnight with 1.7 liters bloody fluid removed - pleural fluid analysis ordered - cont CT management # non-small cell Lung CA - oncology following - gene mutations pending - await gene results may be candidate for non-chemo agent # Acute Leukocytosis - 2/2 PNA - as above work up pending - follow cultures continue empiric broad spectrum Abx # Hyponatremia - at admit likely hypovolemic - resolved with IVF overnight # Hypokalemia - resolved on protocol # Chronic microcytic anemia - certainly 2/2 chronic disease - can add iron studies # proph - on heparin gtt # diet - NPO with ETT # dispo - > 2MN as critically ill requiring ventilator support and aggressive crit care Measures I have discussed the case with Dr. Cary - follow the patients clinical progress closely overnight Subjective: respiratory distress overnight Objective: Vital Signs Temp Pulse Resp BP Pulse Ox 38.4 C H 138 H 38 H 84/58 L 91 L 12/02/17 13:50 12/02/17 13:50 12/02/17 15:59 12/02/17 13:50 12/02/17 15:59 Microbiology 12/02/17 12:40 Respiratory Panel (PCR) - Final Nasal, Sinus - [place] Viral Transport No Organism Detected 12/01/17 17:30 Gastrointestinal Tract Panel (PCR) - Final Stool No Organism Detected Laboratory Results 12/02/17 05:20 12/02/17 13:30 12/01/17 12/02/17 12/03/17 05:59 05:59 05:59 Intake Total 915 200 Output Total 4950 Balance -4035 200 PT 18.9 SEC (12.0-15.0) H 12/02/17 05:20 INR 1.57 (0.83-1.16) H 12/02/17 05:20 - Physical Exam Constitutional: chronically ill appearing Eyes: anicteric sclera Ears, Nose, Mouth, Throat: dry mucous membranes Cardiovascular: regular rate and rhythym, tachycardia Respiratory: inspiratory crackles, respiratory distress Gastrointestinal: normoactive bowel sounds Genitourinary: no bladder fullness Skin: warm, No rash Musculoskeletal: No asymmetric calves Neurologic: No AAOx3 Psychiatric: No agitated Lymph, Heme, Immunologic: no cervical LAD ICD10 Worksheet Patient Problems: Problems Problem Status Onset Hypoxemia Acute Lung cancer Acute Appendicitis Acute Mass of upper lobe of right lung Acute Pulmonary embolism Acute
[2017-12-02] MEDS: WARFARIN SODIUM 2.5 MG TAB PO SCH (18:22)
[2017-12-02] MEDS: PIPERACILLIN/TAZO 4.5 GM/DEX 100 ML IV SCH ×2 (18:22→23:33)
[2017-12-02] MEDS: NS 1,000 ML IV SCH (18:36)
[2017-12-02] MEDS: NOREPINEPHRINE/NS 500 ML IV SCH (20:43)
[2017-12-02] MEDS ORDERED: POTASSIUM Cl (KCl) 10 MEQ in NS 50 ML IV SCH ×2 (20:45→21:00)
[2017-12-02] MEDS ORDERED: HEPARIN 5,000 UNIT/0.5 ML SYR SC SCH (21:00)
[2017-12-02] MEDS ORDERED: FAMOTIDINE 20 MG/NACL 50 ML IV SCH (21:00)
[2017-12-02] MEDS: POTASSIUM Cl (KCl) 10 MEQ in NS 50 ML IV SCH ×3 (21:25→22:45)
[2017-12-03] MEDS: PROPOFOL/EMULSION 100 ML IV SCH (00:17)
[2017-12-03] MEDS: LORazepam 2 MG/ML INJ IVP PRN (01:32)
[2017-12-03] MEDS: HEPARIN/DEXTROSE 500 ML IV SCH (01:33)
[2017-12-03] MEDS ORDERED: VASOPRESSIN/DEXTROSE 250 ML IV SCH (02:00)
[2017-12-03] MEDS ORDERED: VASOPRESSIN 25 UNIT in D5W 250 ML IV SCH (02:00)
[2017-12-03] MEDS: NOREPINEPHRINE/NS 500 ML IV SCH ×2 (02:03→05:24)
[2017-12-03 03:55] LABS: PLATELET COUNT 284 10^3/uL (150-400)
[2017-12-03] MEDS: fentaNYL/NACL 100 ML IV SCH (04:27)
[2017-12-03] MEDS ORDERED: PROTOCOL CALCIUM 1 DOSE IV PRN (05:06)
[2017-12-03] MEDS ORDERED: CALCIUM GLUCONATE 50 ML IV ONE (05:09)
[2017-12-03] MEDS: PIPERACILLIN/TAZO 4.5 GM/DEX 100 ML IV SCH (05:09)
[2017-12-03] MEDS ORDERED: AMIODARONE HCL 540 MG in D5W 300 ML IV ONE (05:53)
[2017-12-03] MEDS ORDERED: AMIODARONE HCL 100 ML IV ONE (05:53)
[2017-12-03] MEDS ORDERED: AMIODARONE HCL 200 ML IV ONE (05:54)
[2017-12-03 06:06] VITALS: BP 70/42; PULSE 122; RESP 36; TEMP 100; O2SAT 45
--- NOTE | 2017-12-03 06:08 | HOSPPROG ---
Hospitalist Progress Note Assessment/Plan: Assessment: Hospitalist Night Float Note Paged by RN several times this AM. Patient with persistent hypotension SBP 80s MAP <65. Patient had been on levophed however maximized 20 mcg/min. Vasopressin was added. Patient developed SVT/VT with rates 180s. and subsequently rapid decline in SBP 30s and slowing HR. 2 amps bicarb, epi bolus given with improvement in BP 100s. epi gtt started. [facility] - reviewed labs, VBG. recs amiodarone for likely development afib. continue with electrolyte replacement. Overall poor prognosis. Patient Luis was called and arrived to bedside. Reviewed overnight events, reviewed patient declining status and high risk for mortality. Will continue with full treatment. will further discuss cor status. critical care time 35 minutes. -- Sophia England MD Objective: Vital Signs Temp Pulse Resp BP Pulse Ox 37.9 C 132 H 40 H 89/61 L 86 L 12/03/17 04:00 12/03/17 05:00 12/03/17 05:00 12/03/17 05:00 12/03/17 05:00 Microbiology 12/02/17 14:40 - Final Sputum, Induced/Suctioned 12/02/17 12:40 Respiratory Panel (PCR) - Final Nasal, Sinus - [place] Viral Transport No Organism Detected Laboratory Results 12/03/17 03:15 12/03/17 03:15 12/02/17 12/03/17 12/04/17 05:59 05:59 05:59 Intake Total 915 6333.6 Output Total 4950 890 Balance -4035 5443.6 PT 18.9 SEC (12.0-15.0) H 12/02/17 05:20 INR 1.57 (0.83-1.16) H 12/02/17 05:20 ICD10 Worksheet Patient Problems: Problems Problem Status Onset Hypoxemia Acute Lung cancer Acute Appendicitis Acute Mass of upper lobe of right lung Acute Pulmonary embolism Acute
[2017-12-03] MEDS ORDERED: SODIUM BICARBONATE 10 MEQ/10 ML SYR IVP ONE (08:46)
[2017-12-03] MEDS ORDERED: EPINEPHrine 1 MG/10 ML SYR IVP ONE (08:46)
[2017-12-03] MEDS ORDERED: VANCOMYCIN HCL/NORMAL SALINE 250 ML IV SCH (09:00)
--- NOTE | 2017-12-04 04:40 | GDS ---
[f rep st] DISCHARGE SUMMARY SUMMARY HISTORY OF PRESENT ILLNESS: This is a 57-year-old female with a history of nonsmall cell lung cancer , who presented with acute respiratory distress secondary to malignant pleural effusion. Patient was admitted, underwent large-volume thoracentesis with chest tube placement. Over the course of the christopher bsequent 24 hours, the patient developed progressive respiratory distress secondary to bilateral pneu monia. Patient ultimately developed sepsis requiring 3 pressors. Patient with her husba nd at the bedside in the medical intensive care unit. /[id number]/MODL
== END 2017-12-03 06:29 | disposition expired | DRG 871 ==
LOC: F2N 13:59
PROVIDERS: ADMIT Hospitalist; ATTEND Hospitalist
PROC: 0W9930Z Drainage of Right Pleural Cavity with Drainage Device, Percutaneous Approach (ICD-10-PCS; 2017-12-01)
PROC: 02HV33Z Insertion of Infusion Device into Superior Vena Cava, Percutaneous Approach (ICD-10-PCS; principal; 2017-12-02)
PROC: 5A1935Z Respiratory Ventilation, Less than 24 Consecutive Hours (ICD-10-PCS; 2017-12-02)
PROC: 0BH18EZ Insertion of Endotracheal Airway into Trachea, Via Natural or Artificial Opening Endoscopic (ICD-10-PCS; 2017-12-02)
PROC: 5A09358 Assistance with Respiratory Ventilation, Less than 24 Consecutive Hours, Intermittent Positive Airway Pressure (ICD-10-PCS; 2017-12-02)
DX: A41.9 Sepsis, unspecified organism (principal); R65.21 Severe sepsis with septic shock; J18.9 Pneumonia, unspecified organism; J96.01 Acute respiratory failure with hypoxia; C34.01 Malignant neoplasm of right main bronchus; E87.1 Hypo-osmolality and hyponatremia; E87.6 Hypokalemia; C77.1 Secondary and unspecified malignant neoplasm of intrathoracic lymph nodes; C78.7 Secondary malignant neoplasm of liver and intrahepatic bile duct; C79.51 Secondary malignant neoplasm of bone; C79.72 Secondary malignant neoplasm of left adrenal gland; C77.2 Secondary and unspecified malignant neoplasm of intra-abdominal lymph nodes; J91.0 Malignant pleural effusion; D50.9 Iron deficiency anemia, unspecified; Z86.718 Personal history of other venous thrombosis and embolism; Z86.711 Personal history of pulmonary embolism; Z79.01 Long term (current) use of anticoagulants
CPT/HCPCS: 85520-90; 86635-90; 87385-90; 87497-90; C1729; C1751; C2617; J0171; J0282; J0330; J0610; J0692; J1644; J1940; J2060; J2250; J2310; J2543; J2704; J3010; J3370; P9041; P9047; Q9967